=== PATIENT | female | born 1950 | race Caucasian/White ===

== ENCOUNTER 2019-10-26 07:37 | Day surgery (SDC) | payer MEDICARE, OTHER ==
[~2019-10-26] VITALS: Ht 157.5 cm; Wt 59.4 kg
[~2019-10-26 07:37] MED LIST: ADULT LOW DOSE81 MG PO; ALL DAY ALLERGY10 M3 PO; ASPIRIN EC81 MG PO; CALCIUM600 MG PO; CELEXA20 MG PO; CETIRIZINE HCL10 MG PO; DICLOFENAC SODI75 MG PO; LIPITOR40 MG PO; LOSARTAN-HCTZ1 EAC1 PO; MACULAR HEALTH1 EACH PO; MULTI VITAMIN1 EACH PO; MULTIVITAMINS1 EAC7 PO; NORCO 5-325 TA1 EACH PO; SIMVASTATIN80 MG PO; VITAMIN B COMP1 EACH PO
--- NOTE | 2019-10-26 09:15 | NUR ---
10/26/19 0915 Sheets,Erma 0909 PT ARRIVED TO PACU ON 2L VIA NC, PT WAKES EASILY TO VERBAL STIMULI AND IS ENCORAGED TO PASS GAS/AIR. PT REORIENTED TO PACU. PT RESTING ON LEFT SIDE AND DENIES DIZZINESS AND PAIN. 0914 O2 TURNED OFF.
--- NOTE | 2019-10-27 07:08 | OR ---
[facility] [address] [place], [place] [address] Signed DATE OF OPERATION: 10/26/2019 SURGEON: Nery Canales MD PREOPERATIVE DIAGNOSES: 1. Personal history of colonic polyps. 2. Sigmoid resection with side-to-end colorectal anastomosis (12 cm). 3. History of diverticular disease. 4. Internal hemorrhoids. 5. Irritable bowel syndrome with constipation and diarrhea. POSTOPERATIVE DIAGNOSES: 1. 3 mm polyps x3 at 10 cm (rectum). 2. Distal left colon diverticula x2. 3. Colorectal anastomosis at 12 cm (side-in). PROCEDURE: Colonoscopy with cold biopsy. ESTIMATED BLOOD LOSS: None. INDICATIONS: Leslie is a 69-year-old female who spoke of a negative colonoscopy clear back in 1999. In 2007, she had hyperplastic polyps in the distal sigmoid colon and the rectum. She had severe angulation at the rectosigmoid junction. The colonoscope could not be passed through this area. A barium enema had been performed. She then underwent her open sigmoid resection in December of 2010 with a Hernandez side-to-end colorectal anastomosis at 12 cm. She came back in March of 2011 for completion colonoscopy. She had a tiny hyperplastic polyp at 15 cm at that time. She also had just a little left-sided diverticulosis. She also was known to have minimal internal hemorrhoid tissue. She has had irritable bowel syndrome in the past including constipation and diarrhea. She said it was markedly improved after the surgery. She then had her gallbladder out in 2012 and she describes yellow liquidy stool, sometimes at 3 or 4 in the morning. I explained her that it was common following a cholecystectomy. She gives no family history of colon cancer or polyps. She returns now for followup colonoscopy. In the office, I gave her a pamphlet on colonoscopy. She recalls colonoscopy quite well. She understands there is risk including, but not limited to gas bloating, crampy abdominal pain, bleeding, perforation requiring surgery, and missed diagnosis. She also understands the need for IV conscious sedation. She has always done well with Versed Electronically Signed By: NERY CANALES MD 10/27/19 0708 PATIENT NAME: LESLIE TRENT OPERATIVE REPORT DATE OF : 48 REPORT #: [id number] PHYSICIAN: NERY CANALES MD PCP: ARIELLA GARCIA PA-C REPORT IS CONFIDENTIAL AND NOT TO BE RELEASED WITHOUT AUTHORIZATION [facility] [address] [place] [id number] Signed and fentanyl. She has expressed understanding and would like to proceed. PROCEDURE NOTE: Leslie was taken into our endoscopy suite and placed in the left lateral decubitus position. She was given a total of 4 mg of Versed and 100 mcg of fentanyl to cover the case. Unfortunately, her blood pressures were running low with systolic blood pressures in the 80s. She was given extra IV fluids. In addition, she did order breath several times and her oxygen saturation was running just a low as well. Nevertheless, she did tolerate the procedure well. We performed a digital rectal exam and this was unremarkable other than a small anterior midline anal skin tag. She has good sphincter tone. No masses. The adult colonoscope had been introduced and advanced all around into the cecum without difficulty. She has a fairly short colon. Her prep was good. The scope was slowly withdrawn. We could easily see the appendiceal orifice and the ileocecal valve. We took pictures throughout for photodocumentation. Back at 12 cm, we examined the blind end of the left colon. There were two diverticula there. No other diverticula noted. We could see the nita at the end of that left colon. The anastomosis remains widely patent and well healed. There is no stricture. There is no ulceration or granulation tissue. No exposed suture. The anastomosis is at 12 cm. At 10 cm high in the rectum were three tiny 3 mm hyperplastic-appearing polyps. They were easily removed with a cold biopsy forceps. Leslie was awakening at that time and we tried to retroflex the scope without success. It did bother just a bit, but after a couple of tries, we decided to go ahead and abandon retroflexion of the scope. We withdrew the scope slowly and no other pathology was noted. After this, the gas had been suctioned out and the colonoscope removed. Leslie tolerated procedure quite well. RECOMMENDATIONS: I will see Leslie back in my office in 7 to 14 days to review her results. Nery Canales MD ALB/MODL /[id number] cc: MD Ariella Hartman PA-C Electronically Signed By: NERY CANALES MD 10/27/19 0708 PATIENT NAME: LESLIE TRENT OPERATIVE REPORT DATE OF : 48 REPORT #: [id number] PHYSICIAN: NERY CANALES MD PCP: ARIELLA GARCIA PA-C REPORT IS CONFIDENTIAL AND NOT TO BE RELEASED WITHOUT AUTHORIZATION [address] [place], [place] [address] Signed Copies: NERY CANALES MD, CHLOE K PA-C ~ Electronically Signed By: NERY CANALES MD 10/27/19 0708 PATIENT NAME: LESLIE TRENT OPERATIVE REPORT DATE OF : 48 REPORT #: [id number] PHYSICIAN: NERY CANALES MD PCP: ARIELLA GARCIA PA-C REPORT IS CONFIDENTIAL AND NOT TO BE RELEASED WITHOUT AUTHORIZATION
--- NOTE | 2019-10-27 14:32 | PATH ---
[facility] [address] [place], [place] [address] Signed SPECIMEN(S): A COLON POLYP AT 10 CM SPECIMEN SOURCE: A. COLON POLYP AT 10 CM CLINICAL HISTORY: IBS, polyps, diverticulosis. MICROSCOPIC DESCRIPTION: Histologic sections of all submitted blocks are examined by light microscopy. These findings, together with the gross examination, support the pathologic diagnosis. FINAL PATHOLOGIC DIAGNOSIS: Mucosa, colon at 20 cm, biopsy: - Hyperplastic polyp. LJA:cml:C2NR GROSS DESCRIPTION: The specimen, labeled "JT, 1" and "colon polyp at 10 cm" on the requisition, is received in formalin and consists of three soft castaneda tissue fragments that vary from 0.1-0.3 cm and are submitted in toto in cassette A1. SS (under the direct supervision of a pathologist) The Gross Description was prepared using a voice recognition system. The report was reviewed for accuracy; however, sound-alike word errors, addition and/or deletions may occur. If there is any question about this report, please contact Client Services. PERFORMING LABORATORY: The technical component was performed by [facility], [address] [place] [id number] (Crm Marketing Executive: Lizet Villatoro MD; CLIA# [id number]). [facility], [address] [address] (CLIA# [id number]). Diagnostician: Johnie Diaz MD Pathologist Electronically Signed 10/27/2019 Copies: PATIENT NAME: DIVYA TRENT PATHOLOGY DATE OF : 48 REPORT #: [id number] PHYSICIAN: [facility] PCP: SÁNCHEZ GARCIA PA-C REPORT IS CONFIDENTIAL AND NOT TO BE RELEASED WITHOUT AUTHORIZATION [address] [address] Signed ~ PATIENT NAME: DIVYA TRENT PATHOLOGY DATE OF : 48 REPORT #: [id number] PHYSICIAN: [facility] PATHOLOGY PCP: SÁNCHEZ GARCIA PA-C REPORT IS CONFIDENTIAL AND NOT TO BE RELEASED WITHOUT AUTHORIZATION
== END 2019-10-26 09:47 | disposition home or self-care (01) ==
LOC: DS 07:37 → OPS 07:37 → DS 11:15
PROVIDERS: Colon & Rectal Surgery
PROC: 0DBP8ZZ Excision of Rectum, Via Natural or Artificial Opening Endoscopic (ICD-10-PCS; principal; 2019-10-26 09:00)
DX: Z12.11 Encounter for screening for malignant neoplasm of colon (principal); K62.1 Rectal polyp; K57.30 Diverticulosis of large intestine without perforation or abscess without bleeding; E78.00 Pure hypercholesterolemia, unspecified; Z86.010 Personal history of colon polyps; Z98.0 Intestinal bypass and anastomosis status; Z79.82 Long term (current) use of aspirin; Z79.899 Other long term (current) drug therapy; Z98.890 Other specified postprocedural states; Z87.891 Personal history of nicotine dependence; Z79.1 Long term (current) use of non-steroidal anti-inflammatories (NSAID)
CPT/HCPCS: 99153; G0500; J2250; J3010; J7121

== ENCOUNTER 2021-02-10 05:35 | Day surgery (SDC) | payer MEDICARE, OTHER ==
[~2021-02-10] VITALS: Ht 157.5 cm; Wt 56.4 kg
[~2021-02-10 05:35] MED LIST changes: +ASPIRIN81 MG PO; +AZO CRANBERRY1 EACH PO; +AZO URINARY TR1 EAC1 PO; +MULTI-VITAMIN1 EACH PO; +OMEPRAZOLE20 MG PO; +PROBIOTIC1 EAC1 PO; +PROBIOTIC1 EAC2 PO
--- NOTE | 2021-02-10 09:06 | NUR ---
02/10/21 0905 Erma Ames 9567 PT ARRIVED TO PACU ON 10 VIA MASK, PT REACTIVE TO TACTILE STIMULI. VSS. 0856 PT OPENS HER EYES AND O2 DECREASED TO 6L, PT DENIES PAIN AND NAUSEA. 0900 O2 REMOVED AND HOB INCREASED. PT ENCOURAGED TO COUGH AND DEEP BREATHE. VSS. RN CONTINUES TO REORIENT PT TO PACU.
--- NOTE | 2021-02-10 09:28 | NUR ---
PT IS BACK TO FROM PACU. SHE HAS WATER ON BEDSIDE. CALL LIGHT WITHIN REACH. NO C/O'S PAIN. PAINTER IS REMOVED, WITH APPROXIMATELY 75CC'S OF PALE YELLOW URINE. VAGINAL PACKING IS ALSO REMOVED. NO ADDITIONAL NEEDS AT THIS TIME.
--- NOTE | 2021-02-10 10:31 | NUR ---
LE 1020: PT REQUESTS TO GET UP OOB TO THE BATHROOM. SHE IS HELPED WITH STANDBY ASSIST. SHE IS UNABLE TO VOID AT THIS TIME, BUT REPORTS BLEEDING. SHE IS GIVEN A PERIPAD AND MESH PANTIES. SHE IS HELPED BACK TO BED. SHE IS GIVEN PUDDING AND ENCOURAGED TO DRINK WATER. CALL LIGHT WITHIN REACH. NO ADDITIONAL NEEDS.
--- NOTE | 2021-02-10 11:06 | NUR ---
PT ALERT, ORIENTED AND WAITING TO DR JAFFE BEFORE SURGERY. PT SEEMS TO BE PREPARED, ALL QUESTIONS ASKED ANSERED. WILL REGISTERED DIET TECHNICIAN FOLLOWING DC. PT REQUESTED PRAYER, WILL FOLLOW NEEDED
--- NOTE | 2021-02-10 11:23 | NUR ---
LE 1100: PT IS UP OOB TO THE BATHROOM WHERE SHE IS ABLE TO VOID 100MLS. SHE INDICATES THAT SHE WOULD LIKE TO GO HOME. SHE IS EDUCATED ON HOW TO BEST DRESS HERSELF AND TO OPEN HER CURTAIN WHEN READY. LE 1105: PT IS GIVEN VERBAL DC INSTRUCTIONS. SHE VERBALIZES UNDERSTANDING. NO QUESTIONS AT THIS TIME. PT IS TAKEN TO PERSONAL VEHICLE VIA WC, SHE IS ABLE TO TRANSFER HERSELF FROM WC TO VEHICLE.
--- NOTE | 2021-02-11 11:21 | PATH ---
[facility] [address] [place], [place] [address] Signed SPECIMEN(S): A MESH SPECIMEN SOURCE: A. MESH CLINICAL HISTORY: Recurrent UTI; bladder outlet obstruction. Cystoscopy, mid urethral sling release. For gross identification only. FINAL PATHOLOGIC DIAGNOSIS: Surgical mesh, excision: - Surgical mesh with associated chronic inflammation and foreign body-type giant cell reaction embedded with dense fibrocollagenous tissue. NAL:cml:C2NR MICROSCOPIC EXAMINATION: Histologic sections of all submitted blocks are examined by light microscopy. These findings, together with the gross examination, support the pathologic diagnosis. GROSS DESCRIPTION: The specimen, labeled "JT," and designated on the requisition "mesh, bladder outlet obstruction, recurrent UTI," is received in formalin and consists of two castaneda-pink soft tissue fragments with embedded clear plastic mesh material measuring 2.0 x 1.0 x 0.4 cm in aggregate. Revenue Accounting Manager sections are submitted in cassette (A1). AT (under the direct supervision of a pathologist) The Gross Description was prepared using a voice recognition system. The report was reviewed for accuracy; however, sound-alike word errors, addition and/or deletions may occur. If there is any question about this report, please contact Client Services. PERFORMING LABORATORY: The technical component was performed by [employer] [facility], [address] [place] [id number] (Prawn Trawler Hand: Lizet Villatoro MD; CLIA# [id number]). [facility], [address] [address] (CLIA# [id number]). Diagnostician: Tatianna Ayoub MD Pathologist PATIENT NAME: DIVYA TRENT PATHOLOGY DATE OF : 48 REPORT #: [id number] PHYSICIAN: [facility] PCP: SÁNCHEZ GARCIA PA-C REPORT IS CONFIDENTIAL AND NOT TO BE RELEASED WITHOUT AUTHORIZATION [address] [place] [address] Signed Electronically Signed 02/11/2021 Copies: ~ PATIENT NAME: DIVYA TRENT PATHOLOGY DATE OF : 48 REPORT #: [id number] PHYSICIAN: [facility] PCP: SÁNCHEZ GARCIA PA-C REPORT IS CONFIDENTIAL AND NOT TO BE RELEASED WITHOUT AUTHORIZATION
--- NOTE | 2021-02-12 08:09 | OR ---
[facility] [address] [place], [place] [address] Signed DATE OF OPERATION: 02/10/2021 SURGEON: Madonna Jaffe MD PREOPERATIVE DIAGNOSES: 1. History of stress urinary incontinence, status post TOT sling placement. 2. Incomplete bladder emptying due to bladder outlet obstruction, secondary to indwelling mid urethral sling. 3. Recurrent urinary tract infection. POSTOPERATIVE DIAGNOSES: 1. History of stress urinary incontinence, status post TOT sling placement. 2. Incomplete bladder emptying due to bladder outlet obstruction, secondary to indwelling mid urethral sling. 3. Recurrent urinary tract infection. NAMES OF PROCEDURES: 1. Diagnostic cystoscopy. 2. Excision of mid urethral sling. ANESTHESIA: General. ESTIMATED BLOOD LOSS: 10 mL. COMPLICATIONS: None. SPECIMENS: Two fragments of polypropylene mid urethral sling sent to pathology for gross evaluation. DRAINS: A 16-Algerian Ramirez catheter, connected to gravity drainage. INDICATIONS FOR PROCEDURE: Ms. Trent is a very pleasant 70-year-old female with a history of stress urinary incontinence symptoms. She underwent placement of a sling quite a few years ago, which did result in improvement of her symptoms. However, for the past couple of years, she has been experiencing recurrent urinary tract infections. She underwent diagnostic Electronically Signed By: MADONNA JFAFE MD 02/12/21 0809 PATIENT NAME: DIVYA TRENT OPERATIVE REPORT DATE OF : 48 REPORT #: [id number] PHYSICIAN: MADONNA JAFFE MD PCP: SÁNCHEZ GARCIA PA-C REPORT IS CONFIDENTIAL AND NOT TO BE RELEASED WITHOUT AUTHORIZATION [facility] [address] [place], [place] [address] Signed cystoscopy, which revealed no obvious evidence of bladder outlet obstruction. However, urodynamics was performed, which did indicate active bladder outlet obstruction with elevated bladder pressures and a weak force of stream. I therefore determined based on that study result that she is likely experiencing bladder outlet obstruction due to the presence of her mid urethral sling. After discussion of the nature of the procedure related to sling and excision, the patient has agreed to undergo excision of her mid urethral sling. She does understand that she has an approximately 30% chance of recurrence of her stress urinary incontinence symptoms. She presents today to undergo excision of her mid urethral sling. OPERATIVE FINDINGS: 1. Approximately 1 cm worth of the patient's sling was excised and removed from the area of the urethra. I would have dissected it further down to extract more sling, however, the sling appeared to be very well imbedded into the periurethral tissue, so I aborted any measures to continue to dissect the sling to the level of the bilateral pubic rami. 2. Cystoscopy was performed after excision of the sling, which revealed no evidence of any iatrogenic damage to the urethra or bladder neck. Re-evaluation of the bladder revealed no new changes since her most recent cystoscopy. DESCRIPTION OF PROCEDURE: After informed consent was obtained, the patient was taken back to the operating room. She was transferred from the [facility] to the operating room table where general anesthesia was induced. She was placed in the mid high to high dorsal lithotomy position and her genitalia were prepped and draped in the standard sterile fashion. A 16-Algerian Ramirez catheter was inserted into her bladder and her bladder was emptied completely. A Virgilio retractor was then placed over the genitalia and hooks were inserted to allow for better visualization of the anterior vaginal wall and suburethral space. Once her hooks were placed, one Allis was placed approximately 0.5 cm inferior to the urethra and the 2nd one was placed approximately 3 cm below. A 10 mL of 0.25% Marcaine without epinephrine was then injected into the periurethral space to allow for improved dissection. An approximately 2 cm vertical incision was made into the anterior vaginal wall just over where the mid urethral sling was palpable in the urethral area. Prior to placement of the incision, I had palpated the sling quite easily with the Ramirez catheter in place. Using Metzenbaum scissors, I dissected the vertical incision bilaterally toward the pubic rami. With my finger, I was able to locate the sling and dissect the periurethral tissue embedded around it. This was mostly performed using a #15 blade. I inserted the right angle under the sling once I dissected it free from the surrounding tissue. I incised the sling with a straight scissor. I took hold of each side of the sling in an attempt to dissect it down toward each respective pubic ramus as far as I could. I was able to extract a small amount of each side of the exposed sling for a total amount of approximately 1 cm of sling excised. All the while, hemostasis was achieved via FloSeal as well as judicious use of electrocautery avoiding the area of the urethra at all Electronically Signed By: MADONNA JAFFE MD 02/12/21 0809 PATIENT NAME: DIVYA TRENT OPERATIVE REPORT DATE OF : 48 REPORT #: [id number] PHYSICIAN: MADONNA JAFFE MD PCP: SÁNCHEZ GARCIA PA-C REPORT IS CONFIDENTIAL AND NOT TO BE RELEASED WITHOUT AUTHORIZATION [address] [place] [address] Signed times. Once I was satisfied that hemostasis had been achieved, the incision was closed in a continuous running fashion using 3-0 Vicryl. Diagnostic cystoscopy was then performed. Please see above findings. I then reinserted the Ramirez catheter and drained the patient's bladder yet again. Vaginal packing impregnated with Premarin cream, was then inserted into the vagina and the procedure was terminated. The patient tolerated the procedure well without any complication. She will now be transferred to the postanesthesia care unit in stable condition. DISPOSITION: I discussed the details of today's procedure with the patient and answered all of her questions. I reiterated with her today the risk of recurrence of her stress symptoms and that this occurs approximately 30% of the time. I also instructed her to avoid any heavy lifting for at least the next 2 weeks. She was given cephalexin 500 mg p.o. b.i.d. for a total of 7 days today, along with oxycodone 5 mg q.6 hours p.r.n. pain, dispense #15 as needed for pain. She will be scheduled to return to clinic in approximately 3 weeks to undergo her first postoperative evaluation. MD CHANO Covarrubias/MARY /[id number] Copies: ~ Electronically Signed By: MADONNA JAFFE MD 02/12/21 0809 PATIENT NAME: DIVYA TRENT OPERATIVE REPORT DATE OF : 48 REPORT #: [id number] PHYSICIAN: MADONNA JAFFE MD PCP: SÁNCHEZ GARCIA PA-C REPORT IS CONFIDENTIAL AND NOT TO BE RELEASED WITHOUT AUTHORIZATION
== END 2021-02-10 11:10 | disposition home or self-care (01) ==
LOC: OPS 05:35 → DS 05:35 → OPS 06:45
PROVIDERS: ATTEND Urology
PROC: 0TSC4ZZ Reposition Bladder Neck, Percutaneous Endoscopic Approach (ICD-10-PCS; principal; 2021-02-10 06:45)
DX: T83.89XA Other specified complication of genitourinary prosthetic devices, implants and grafts, initial encounter (principal); N32.0 Bladder-neck obstruction; N39.0 Urinary tract infection, site not specified; I10 Essential (primary) hypertension; E78.5 Hyperlipidemia, unspecified; Z87.891 Personal history of nicotine dependence
CPT/HCPCS: 00918; 88300; J0690; J1100; J1885; J2250; J2405; J2704; J2765; J3010; J7121

== ENCOUNTER 2024-11-14 19:13 | Inpatient (IN) | payer MEDICARE, OTHER ==
[~2024-11-14] VITALS: Ht 157.5 cm; Wt 52.9 kg
--- NOTE | 2024-11-14 01:35 | NUR ---
pt CALLING OUT FOR HELP. THIS RN WENT IN RM. pt STATED SHE HAD TO GO PEE. THIS RN TRIED TO REMIND pt THAT SHE HAS A PURE WICK IN. pt TRIED TO USE BUT WAS UNABLE TO AND KEPT SAYING SHE HAD TO PEE. THIS RN WITH THE ASSISTANCE OF LORI BASILIO HELPED THE pt TO THE BSC. pt PEED. pt BACK TO BED. BED ALARM ON. NO OTHER NEEDS AT THIS TIME. CALL LIGHT WITHIN REACH.
[~2024-11-14 19:13] MED LIST changes: -ALL DAY ALLERGY10 M3 PO; +ALL DAY ALLERGY10 MG PO
[2024-11-14] MEDS ORDERED: ondansetron HCL 4 MG/2 ML VIAL IV ONE (19:20)
[2024-11-14] MEDS ORDERED: SODIUM CHLORIDE 0.9% 1,000 ML IV PRN ×2 (19:20→20:05)
[2024-11-14] MEDS ORDERED: CEFTRIAXONE SODIUM 2 GM in SODIUM CHLORIDE 0.9% 100 ML IV ONE (19:30)
[2024-11-14 19:33] LABS: BASOPHILS 0.6 % (0-2); EOSINOPHILS 0.1 % (0-6); HEMATOCRIT 35.7 % (35.0-50.0); LYMPHOCYTES 42.7 % (24-44); MCH 34.7 (27-36); MCHC 33.6 g/dl (30-36); MCV 103.1 fl (81-99); MONOCYTES 8.9 % (0-12); NEUTROPHILS 47.7 % (39-80); PLATELET COUNT 326 K/uL (140-440); RBC 3.46 M/ul (4.3-5.7); RDW 13.6 (10.5-15.0)
[2024-11-14] MEDS ORDERED: CEFTRIAXONE SODIUM 2 GM VIAL ONE (19:39)
[2024-11-14 19:45] LABS: PARTIAL THROMBOPLASTIN TIME 21.5 Sec (22.9-41.3)
[2024-11-14 19:46] LABS: INR 1.02 (0.80-1.30); PROTIME 13.3 Sec (11.2-14.2)
[2024-11-14 19:50] LABS: ALBUMIN 3.7 g/dL (3.4-5.0); ALBUMIN/GLOBULIN RATIO 1.03 (1.1-2.4); ANION GAP 23.3 (7-21); BILIRUBIN, TOTAL 0.5 mg/dL (0.2-1.0); BUN/CREATININE RATIO 14.28 (6.0-28.6); CALCIUM 9.1 mg/dL (8.5-10.1); CREATININE, SERUM 1.12 mg/dL (0.55-1.02); POTASSIUM 3.3 mmol/L (3.5-5.1); PROTEIN, TOTAL 7.3 g/dL (6.4-8.2)
[2024-11-14 19:54] LABS: LACTIC ACID, BLOOD 7.1 mmol/L (0.4-2.0)
[2024-11-14 20:05] LABS: BILIRUBIN, URINE NEGATIVE (negative); BLOOD/HGB, URINE TRACE-L (Negative); KETONE, URINE SMALL (Negative); LEUK ESTERASE, URINE NEGATIVE (negative); NITRITE, URINE NEGATIVE (negative)
[2024-11-14 20:15] LABS: BACTERIA, URINE RARE /hpf (negative); CASTS, URINE NONE SEEN \\lpf; COLLECTION TYPE, URINE CLEAN CATCH; CRYSTALS, URINE NONE SEEN (0-1+); EPITHELIAL CELLS, URINE SQUAMOUS 1+ /lpf (0-1+)
[2024-11-14 20:16] LABS: REFLEX CULTURE, URINE Yes (No)
[2024-11-14] MEDS ORDERED: TRAMADOL HCL50 MG PO (20:17)
[2024-11-14] MEDS ORDERED: NYSTATIN-TRIAMC15 GM (20:17)
[2024-11-14 20:43] LABS: INFLUENZA B NAA NEGATIVE (NEGATIVE); RESPIRATORY SYNCYTIAL VIR NAA NEGATIVE (NEGATIVE)
[2024-11-14] MEDS ORDERED: SODIUM CHLORIDE 0.9% 1,000 ML IV SCH (20:45)
[2024-11-14] MEDS ORDERED: PROCHLORPERAZINE EDISYLATE 10 MG/2 ML VIAL IV ONE (20:45)
[2024-11-14] MEDS ORDERED: MAGNESIUM SULFATE 2 GM/50 ML BAG IV ONE (21:45)
[2024-11-14 22:10] LABS: PH, VENOUS 7.369 (7.31-7.41)
[2024-11-14] MEDS ORDERED: POTASSIUM CHLORIDE 10 MEQ TABCR PO ONE (22:45)
[2024-11-14] MEDS ORDERED: METOPROLOL TARTRATE 5 MG/5 ML VIAL IV ONE (22:45)
[2024-11-14] MEDS ORDERED: ACETAMINOPHEN 325 MG TAB PO PRN (23:15)
[2024-11-14] MEDS ORDERED: ondansetron HCL 4 MG/2 ML VIAL IV PRN (23:15)
[2024-11-14] MEDS ORDERED: DIPHENOXYLATE/ATROPINE 1 EA TAB PO PRN (23:15)
[2024-11-14] MEDS ORDERED: LACTATED RINGER'S 1,000 ML IV SCH (23:15)
--- NOTE | 2024-11-14 23:25 | NUR ---
PHONE CALL FROM , NEW ORDERS FOR MORNING LABS. REPEATED BACK TO VERIFY.
[2024-11-14 23:38] VITALS: BP 167/87
[2024-11-15] VITALS (12 sets, daily range): BP systolic 125–178; BP diastolic 47–87
--- NOTE | 2024-11-15 00:09 | NUR ---
pt ARRIVED TO THE FLOOR VIA THE STRETCHER. pt TRANSFERED TO THE BED VIA THE SLIDE SHEET. pt ATTACHED TO PURE WICK AND REMINDED THAT SHE CAN PEE INTO THE CANISTER WHEN SHE WANTS TO GO. ASSESSMENT AND VITAL SIGNS DONE. ADMISSION DONE. TELE #7 ON. CPOX ON. pt DENIES ANY OTHER NEEDS AT THIS TIME. CALL LIGHT WITHIN REACH. BED ALARM ON.
--- NOTE | 2024-11-15 03:31 | NUR ---
pt RESTING IN THE BED WITH EYES CLOSED. RR EVEN AND UNLABORED. CALL LIGHT WITHIN REACH.
--- NOTE | 2024-11-15 05:59 | NUR ---
pt RESTING IN THE BED. VITAL SIGNS DONE. pt DENIES ANY OTHER NEEDS AT THIS TIME. CALL LIGHT WITHIN REACH.
[2024-11-15 06:11] LABS: BASOPHILS 0.6 % (0-2); HEMATOCRIT 32.8 % (35.0-50.0); HEMOGLOBIN 11.3 g/dL (12.0-18.0); LYMPHOCYTES 19.2 % (24-44); MCH 34.9 (27-36); MCHC 34.5 g/dl (30-36); MCV 101.3 fl (81-99); MONOCYTES 8.2 % (0-12); PLATELET COUNT 291 K/uL (140-440); RBC 3.24 M/ul (4.3-5.7); RDW 13.5 (10.5-15.0)
[2024-11-15 06:34] LABS: ALBUMIN 3.3 g/dL (3.4-5.0); ALBUMIN/GLOBULIN RATIO 0.94 (1.1-2.4); ANION GAP 14.4 (7-21); BILIRUBIN, TOTAL 0.4 mg/dL (0.2-1.0); BUN/CREATININE RATIO 14.28 (6.0-28.6); CALCIUM 8.4 mg/dL (8.5-10.1); CREATININE, SERUM 0.7 mg/dL (0.55-1.02); POTASSIUM 3.4 mmol/L (3.5-5.1); PROTEIN, TOTAL 6.8 g/dL (6.4-8.2)
[2024-11-15] MEDS ORDERED: CITALOPRAM HBR40 MG PO (07:52)
[2024-11-15] MEDS ORDERED: LOSARTAN POTASS50 MG PO (07:53)
--- NOTE | 2024-11-15 08:30 | NUR ---
UPDATED ON CURRENT POC - ALL QUESTIONS ANSWERED. PT EXPRESSING DESIRE TO GO HOME TODAY - EDUCATION ON UTI'S AND ABX PROVIDED.
[2024-11-15] MEDS ORDERED: CEFTRIAXONE SODIUM 2 GM VIAL ONE (08:33)
[2024-11-15] MEDS ORDERED: CEFTRIAXONE SODIUM 2 GM in SODIUM CHLORIDE 0.9% 100 ML IV SCH (09:00)
--- NOTE | 2024-11-15 09:25 | NUR ---
IV ANTIBIOTICS COMPLETE. IV IN THE RIGHT FOREARM FLUSHED WITH 10 ML NORMAL SALINE AND IS SALINE LOCKED. IV DRESSING IS CLEAN, DRY, AND INTACT. PATIENT WITH VISITOR SITTING AT THE BEDSIDE. PATIENT STATED NO FURTHER NEEDS AT THIS TIME. CALL LIGHT AND PERSONAL BELONGINGS ARE WITHIN REACH.
--- NOTE | 2024-11-15 09:28 | NUR ---
ALERT IN BED, WITH KAYLYNN, SPOUSE, AT BEDSIDE. PATIENT HAS BEEN HAVING INCREASING CONFUSION, PER . PATIENT LIVES IN SINGLE STORY HOME WITH 2 STEPS TO GET INSIDE. NO ISSUES WITH THE STEPS AT BASELINE. PATIENT HAS WALKER BUT DOES NOT NEED IT AT BASELINE. KAYLYNN PROVIDES TRANSPORTATION FOR PATIENT. KAYLYNN DENIES DIFFICULTY PAYING UTILITIES OR FOR FOOD OR MEDICATIONS. HIS BIGGEST CONCERN IS PATIENT'S INCREASING FORGETFULNESS. HE ASKS ABOUT ASSISTANCE FOR CAREGIVING BECAUSE THERE ARE NO FAMILY/FRIENDS AVAILABLE TO ASSIST WITH CARING FOR PATIENT. INFORMATION FOR FAMILY RESOURCES PROVIDED. DISCUSSED ACCOUNTS COLLECTOR MEDICAID OPTION, KAYLYNN STATES THEY HAVE TOO MUCH INCOME TO QUALIFY FOR CUSTODIAL MEDICAID. DENIES OTHER NEEDS OR QUESTIONS AT THIS TIME.
--- NOTE | 2024-11-15 10:02 | NUR ---
MED REC COMPLETE
--- NOTE | 2024-11-15 10:07 | NUR ---
VISITED DURING SPIRITUAL CARE ROUNDS. PT APPEARED TO BE SLEEPING. DID NOT DISTURB. PROVIDED PRAYER.
--- NOTE | 2024-11-15 10:40 | NUR ---
RN ROUNDING ON PT - RESTING ON BED ON SIDE, DENIES NEEDS AT THIS TIME. CALL LIGHT IN REACH.
--- NOTE | 2024-11-15 12:04 | NUR ---
Patient was steady on their feet, SBA to the bathroom. Patient returned to bed once done. IV pole plugged back in. Call light and personal items within reach.
--- NOTE | 2024-11-15 12:44 | NUR ---
PT ASSISTED IN AMBULATION TO BATHROOM TO VOID - PT DENIES DYSURIA. BACK TO BED WITH CALL LIGHTIN REACH, BED ALARM ON. PT REMAINS FORGETFUL ABOUT USING CALL LIGHT AND WHY SHE IS IN THE HOSPITAL. NEEDS FREQUENT REORIENTATION. DENIES NEEDS AT THIS TIME.
--- NOTE | 2024-11-15 12:44 | EKG ---
[facility] [address] [facility] [place] [address] Signed Sinus tachycardia Left axis deviation Low voltage QRS Cannot rule out Anterior infarct (cited on or before 04-FEB-2021) Abnormal ECG When compared with ECG of 14-NOV-2024 19:15, Sinus rhythm has replaced Junctional rhythm Questionable change in initial forces of Septal leads Confirmed by Reinaldo Marinelli MD () on 11/15/2024 12:44:09 PM Electronically Signed By: REINALDO MARINELLI MD 11/15/24 1244 PATIENT NAME: DIVYA TRENT Electrocardiogram DATE OF : 48 PHYSICIAN: REINALDO MARINELLI MD REPORT #: [id number] REPORT IS CONFIDENTIAL AND NOT TO BE RELEASED WITHOUT AUTHORIZATION
--- NOTE | 2024-11-15 12:44 | EKG ---
[facility] [address] [place] [address] Signed Accelerated Junctional rhythm Left axis deviation Low voltage QRS Septal infarct (cited on or before 04-FEB-2021) Abnormal ECG When compared with ECG of 04-FEB-2021 15:25, Junctional rhythm has replaced Sinus rhythm Vent. rate has increased BY 56 BPM Incomplete right bundle branch block is no longer present Confirmed by Reinaldo Marinelli MD () on 11/15/2024 12:44:26 PM Electronically Signed By: REINALDO MARINELLI MD 11/15/24 1244 PATIENT NAME: DIVYA TRENT Electrocardiogram DATE OF : 48 PHYSICIAN: REINALDO MARINELLI MD REPORT #: [id number] REPORT IS CONFIDENTIAL AND NOT TO BE RELEASED WITHOUT AUTHORIZATION
[2024-11-15] MEDS ORDERED: ondansetron HCL 4 MG/2 ML VIAL IV PRN (12:45)
[2024-11-15] MEDS ORDERED: SODIUM CHLORIDE 0.9% 1,000 ML IV SCH (12:45)
[2024-11-15] MEDS ORDERED: ACETAMINOPHEN 325 MG TAB PO PRN (12:45)
--- NOTE | 2024-11-15 13:45 | NUR ---
PT RESTING IN BED - AT SIDE. MD AWARE IN ROOM TO DISCUSS PLAN. PT AND DENY NEEDS AT THIS TIME. VS STABLE. PT ORIENTED TO TIME AND PLACE NOW, CLEARING SOME FROM THIS AM.
--- NOTE | 2024-11-15 15:22 | NUR ---
THIS RN NOTIFIED BY HOTEL SERVICES SALES REPRESENTATIVE THAT PT WAS NOTED TO HAVE HR 149 ON COLLAR TRIMMER - NOTED TO BE FLUSH, DIAPHORETIC AND SHAKY ON BED SIDE ASSESSMENT. MD AT BEDSIDE TO ASSESS. HR ELEVATED TRANSIENTLY, REGULAR. SYMPTOMS RESOLVED WHILE AT BEDSIDE. NO ORDERS RECEIVED AT THIS TIME, MD TO REVIEW HOME MED LIST. BED ALARM ON.
[2024-11-15] MEDS ORDERED: POTASSIUM CHLORIDE 40 MEQ,LIDOCAINE HCL 1% 40 MG in DEXTROSE 5% 250 ML IV ONE (16:00)
[2024-11-15] MEDS ORDERED: ACETAMINOPHEN 325 MG TAB PO ONE (16:15)
--- NOTE | 2024-11-15 16:32 | NUR ---
PATIENT BECAME TACHY ON TELE. THEY APPEARED FLUSHED, SWEATY, AND CONFUSED. VITALS WERE TAKEN AND REPORTED TO CHARGE NURSE FRANCESCO. DOCTOR DUVALL BROUGHT IN TO CONSULT.
[2024-11-15] MEDS ORDERED: LOSARTAN POTASSIUM 50 MG TAB PO SCH (16:58)
--- NOTE | 2024-11-15 17:27 | NUR ---
PT ASSISTED BACK TO BED FROM BATHROOM BY SOUND INSTALLATION WORKER. BED ALARM ON. PT DENIES WANTING TO EAT DINNER, POOR APPETITE NOTED. IV K+ STARTED, SITE WNL.
--- NOTE | 2024-11-15 17:34 | NUR ---
PT EXITING BED WITHOUT NOTIFYING STAFF. PT HAS VISITOR IN ROOM STATING HE CAN HELP HER. PT STATES "MY WILL HELP ME, YOU GUYS CAN GO." THIS RN AND LORI BURROUGHS EXPLAIN TO PT AND PTs THAT A STAFF MEMBER NEEDS TO BE PRESENT WHEN SHE IS TRANSFERING/AMBULATING. PT VERBALIZES UNDERSTANDING. LORI BURROUGHS REMAINS WITH PT TO USE RESTROOM.
--- NOTE | 2024-11-15 18:52 | NUR ---
THIS RN RESPONDS TO PT BED ALARM. PT IS STANDING AT BEDSIDE AND REPORTS THAT SHE IS UP BECAUSE HER BED IS WET. UPON INVESTIGATION PT HAD PULLED THE IV FROM HER L AC AND IT HAS SATURATED HER LINENS. PT L AC IS REDDENED WITH A SMALL AMOUNT OF DRIED BLOOD. PT CLEANED UP WITH ALCOHOL PAD, DENIES PAIN IN AREA. SITE IS NOT WRAPPED D/T NO FURTHER BLEEDING. LORI GOODWIN AND GIOVANI SHERIDAN ARRIVE. LINENS CHANGED ON THE BED. IV TO PTs R AC PATENT - IVF RESTARTED IN PTs R AC. PT BAD TO BED, WARM BLANKETS PROVIDED, PT HAS NO REQUESTS. BED ALARM ON, BED IN LOWEST POSITION, CALL LIGHT IN REACH.
--- NOTE | 2024-11-15 19:10 | NUR ---
REPORT RECEIVED FROM FATIMAH MATUTE. pt RESTING IN THE BED. pt UP TO THE BR. SBA. pt BACK TO BED. BED ALARM ON. pt DENIES ANY OTHER NEEDS AT THIS TIME. CALL LIGHT WITHIN REACH.
--- NOTE | 2024-11-15 20:35 | NUR ---
CENTRAL SERVICE TECH OBTAINED VITALS AND I&O. PT STATES NO NEEDS AT THIS TIME. CALL LIGHT WITHIN REACH AND BED ALARM ON.
[2024-11-15] MEDS ORDERED: ATORVASTATIN 40 MG TAB PO SCH (21:00)
--- NOTE | 2024-11-15 21:40 | NUR ---
ASSESSMENT AND VITAL SIGNS DONE. pt RESTING IN THE BED. IV ASSESSED, WNL. BED ALARM ON. pt DENIES ANY NEEDS AT THIS TIME. CALL LIGHT WITHIN REACH.
--- NOTE | 2024-11-15 23:50 | NUR ---
BED ALARM ALARMING. pt TRYING TO GET TO GO TO THE BR. pt ASSISSTED TO THE BR, SBA. pt BACK TO BED. BED ALARM ON. pt DENIES ANY OTHER NEEDS AT THIS TIME. CALL LIGHT WITHIN REACH.
[2024-11-16] VITALS (11 sets, daily range): BP systolic 117–166; BP diastolic 63–83
--- NOTE | 2024-11-16 01:21 | NUR ---
CALL LIGHT ANSWERED. PATIENT UP TO BATHROOM USING 1P SBA AND FWW TO VOID. PATIENT BACK TO BED. BED ALARM ON. NO FURTHER NEEDS. CALL LIGHT IN REACH.
--- NOTE | 2024-11-16 01:46 | NUR ---
IN RM TO DO pt VITAL SIGNS. ASSESSMENT DONE. pt DENIES ANY OTHER NEEDS AT THIS TIME. CALL LIGHT WITHIN REACH.
--- NOTE | 2024-11-16 03:03 | NUR ---
SUPERINTENDENT HOUSE SBA TO BATHROOM. PT VOIDED AND ASSISTED BACK TO BED. PT STATES NO FURTHER NEEDS AT THIS TIME. CALL LIGHT WTIHIN REACH AND BED ALARM ON.
--- NOTE | 2024-11-16 05:00 | NUR ---
IN TO CHECK ON pt. pt HR UP TO THE 130'S. pt SITTING UP IN THE BED. pt ASKED TO GO TO THE BR. SBA. VITAL SIGNS DONE. pt BACK TO BED. pt DENIES ANY OTHER NEEDS AT THIS TIME. CALL LIGHT WITHIN REACH. WHEN LAYING BACK IN THE BED. pt HR WENT BACK DOWN TO 88.
--- NOTE | 2024-11-16 06:01 | NUR ---
CALL LIGHT ANSWERED. PT NEEDED TO USE BATHROOM. MEDICAL PSYCHOTHERAPIST SBA TO BATHROOM. PT VOIDED AND HAD BM. PT ASSISTED BACK TO BED. PT STATES NO FURTHER NEEDS AT THIS TIME. CALL LIGHT WITHIN REACH AND BED ALARM ON.
[2024-11-16 06:26] LABS: BASOPHILS 0.3 % (0-2); EOSINOPHILS 0.1 % (0-6); HEMATOCRIT 34.4 % (35.0-50.0); HEMOGLOBIN 11.8 g/dL (12.0-18.0); LYMPHOCYTES 18.5 % (24-44); MCH 34.7 (27-36); MCHC 34.1 g/dl (30-36); MCV 101.6 fl (81-99); MONOCYTES 11.5 % (0-12); NEUTROPHILS 69.6 % (39-80); PLATELET COUNT 313 K/uL (140-440); RBC 3.39 M/ul (4.3-5.7); RDW 13.6 (10.5-15.0)
[2024-11-16 06:50] LABS: ALBUMIN 3.2 g/dL (3.4-5.0); ALBUMIN/GLOBULIN RATIO 0.97 (1.1-2.4); ANION GAP 14.4 (7-21); BILIRUBIN, TOTAL 0.5 mg/dL (0.2-1.0); BUN/CREATININE RATIO 11.76 (6.0-28.6); CALCIUM 8.2 mg/dL (8.5-10.1); CREATININE, SERUM 0.68 mg/dL (0.55-1.02); MAGNESIUM 1.5 mg/dL (1.8-2.4); PHOSPHORUS, INORGANIC 1.4 mg/dL (2.5-4.9); POTASSIUM 3.4 mmol/L (3.5-5.1); PROTEIN, TOTAL 6.5 g/dL (6.4-8.2)
--- NOTE | 2024-11-16 07:28 | NUR ---
RECIEVED SHIFT REPORT FROM GIOVANI OVERTON. PT GETTING OUT BED, WITHOUT USE OF CALL LIGHT. BED ALARM GOING OFF. THIS RN AND BROOKLYNN MATUTE IN ROOM ASSISTING PT TO BATHROOM. TECHNICAL SUPPORT SPECIALIST IN ROOM STAND WITH PT.
--- NOTE | 2024-11-16 07:37 | NUR ---
PATIENT IN BED AT THIS TIME. PHOSPHATIC FERTILIZER SUPERVISOR ASSISTED PATIENT TO BATHRROM AND THEN BACK TO BED. BED ALARM IS SET, CALL LIGHT WITHIN REACH, NO FURTHER NEEDS AT THIS TIME.
--- NOTE | 2024-11-16 07:58 | NUR ---
UR CLINICAL REVIEW: 2 MN FOR VERSALUS-PER STAMPING BENCH DIE MAKER MEETS OBS CRITERIA FOR UTI MEDICARE OBS 11/15/24 @ 1238 ORDER MATCHES REG NO AUTH REQUIRED PER MEDICARE GUIDELINES DISCHARGE TO HOME 11/16/24
--- NOTE | 2024-11-16 07:58 | NUR ---
PATIENT IN BED AT THIS TIME. BONDING MOLDER ASSISTED PATIENT TO BATHROOM AND THEN BACK TO BED. CALL LIGHT WITHIN REACH, BED ALARMS ON, NO FURTHER NEEDS.
--- NOTE | 2024-11-16 08:10 | NUR ---
MORNING ASSESSMENT COMPLETE. PT CONTIUNOUSLY GETTING UP TO USE RESTROOM, IMPULSIVE. DENIES NEEDS. CALL LIGHT IN REACH. CONTINUED TO ORIENT PT TO THE CALL LIGHT. AT BEDSIDE.
[2024-11-16] MEDS ORDERED: CEFTRIAXONE SODIUM 2 GM VIAL ONE (08:21)
--- NOTE | 2024-11-16 08:56 | NUR ---
PATIENT WAS IN BED AT THIS TIME, EKG MONITOR TECH GOT FRESH WATER AND OFFERED A WASH CLOTH. CALL LIGHT WITH IN REACH NOTHING ELSE NEEDED AT THIS TIME.
[2024-11-16] MEDS ORDERED: ENOXAPARIN SODIUM 40 MG/0.4 ML SYR SUB-Q SCH (09:00)
[2024-11-16] MEDS ORDERED: POTASSIUM PHOSPHATE 30 MMOL in DEXTROSE 5% 500 ML IV ONE (09:00)
[2024-11-16] MEDS ORDERED: MAGNESIUM SULFATE 2 GM/50 ML BAG IV SCH (09:00)
--- NOTE | 2024-11-16 10:01 | NUR ---
RESTING IN BED WITH EYES CLOSED. NO KNOWN CM NEEDS WHEN SPOKE WITH SPOUSE, KAYLYNN. PLAN TO DC TO HOME WHEN MEDICALLY STABLE.
--- NOTE | 2024-11-16 10:10 | NUR ---
PT NOT AVAILABLE FOR VISIT. PROVIDED PRAYER.
--- NOTE | 2024-11-16 10:51 | NUR ---
PATIENT IS IN BED AT THIS TIME, PEDAL ASSEMBLER CHARTED VITALS AND I&O'S. GOT FRESH ICE WATER FOR PATIENT, CALL LIGHT WITH IN REACH AND NOTHING ELSE NEEDED AT THIS TIME.
[2024-11-16] MEDS ORDERED: PHARMACY RENAL DOSE ADJUSTMENT 1 DOSE MISC PO SCH (12:00)
--- NOTE | 2024-11-16 12:14 | NUR ---
pt resting in bed, comfortably. call light in reach. denies needs.
--- NOTE | 2024-11-16 12:39 | NUR ---
PATIENT IN BED AT THIS TIME. THIS ORGANIC LAB WORKER ASSISTED PATIENT TO BATHROOM AND THEN BACK TO BED. CALL LIGHT WITHIN REACH, ALARMS ON, NO FURTHER NEEDS.
--- NOTE | 2024-11-16 13:33 | NUR ---
PATIENT ASSISTED TO THE BATHROOM WITH SBA AND LINE AND TUBE MANAGEMENT. PATIENT WITH LIGHT YELLOW URINE VOID AND LOOSE STOOL. PATIENT ASSISTED BACK TO BED. LUNCH TRAY REMOVED AT THIS TIME. PATIENT PROVIDED NEW BOX OF [employer]. PATIENT STATED NO FURTHER NEEDS AT THIS TIME. CALL LIGHT AND PERSONAL BELONGINGS ARE WITHIN REACH.
--- NOTE | 2024-11-16 14:25 | NUR ---
PATIENT IS IN BED AT THIS TIME, REFUSED MOVING TO HER CHAIR. ORNAMENTAL RAIL INSTALLER CHARTED VITALS AND I&O'S, CALL LIGHT WITH IN REACH, NOTHING ELSE NEEDED AT THIS TIME.
--- NOTE | 2024-11-16 15:00 | NUR ---
Upon entering room I find Leslie with her eyes closed, respirations even and unlabored. Leslie awakens easily to verbal stimuli, she is oriented to person, place and time, and answers questions appropriately. 1st [facility] letter is explained, questions answered, and letter is signed. A signed copy of the letter is provided to the patient. Patient expresses no further concerns or questions at this time.
--- NOTE | 2024-11-16 15:12 | NUR ---
PATIENT IN BED AT THIS TIME. THIS SPECIAL DISTRIBUTION CLERK ASSISTED PATIENT TO BATHROOM AND THEN BACK TO BED. CALL LIGHT WITHIN REACH, ALARMS ON, NO FURTHER NEEDS.
--- NOTE | 2024-11-16 17:26 | NUR ---
PATIENT IN BED AT THIS TIME. ELECTRONEURODIAGNOSTIC TECHNOLOGIST ASSISTED PATIENT IN TO BATHROOM AND THEN BACK TO BED. CALL LIGHT WITHIN REACH, IN ROOM, NO FURTHER NEEDS.
--- NOTE | 2024-11-16 17:57 | NUR ---
PATIENT IS IN BED AT THIS TIME, COMMUNICATION STUDIES PROFESSOR CHARTED VITALS AND I&O'S. CALL LIGHT WITH IN REACH AND NOTHING ELSE NEEDED AT THIS TIME.
--- NOTE | 2024-11-16 19:24 | NUR ---
RECEIVED REPORT FROM GIOVANI DICKEY. PT RESTING IN BED. DENIES NEEDS.
--- NOTE | 2024-11-16 20:00 | NUR ---
PT ORIENTED X 3-NOT EXACT DATE. ATTEMPTING TO GET OOB UNASSISTED, BED ALARM SOUNDING. ASSISTED TO BR W/ SBA, PT STEADY ON FEET. DENIED PAIN, THEN REPORTED BACK PAIN, THEN DENIED PAIN AGAIN WHEN TYLENOL GIVEN. LSC. HRR BUT TACHY. TELEMETRY IN PLACE. BTA. URINARY URGENCY NOTED, DISPOSIBLE BRIEF IN PLACE. RAC IV W/ NS INFUSING AT 125MLS/HR. SCATTERED BRUISING TO BUE. SMALL ABRASION TO LEFT FOREHEAD. BED ALARM IN PLACE FOR SAFETY. CALL LIGHT WITHIN REACH.
--- NOTE | 2024-11-16 20:32 | NUR ---
BELLOWS TESTER OBTAINED VITALS. NO NEW I&O AT THIS TIME. PT STATES NO NEEDS AT THIS TIME. CALL LIGHT WITHIN REACH AND BED ALARM ON.
--- NOTE | 2024-11-16 22:50 | NUR ---
CALL LIGHT ANSWERED. PT NEEDED TO USE BATHROOM. MANAGER EQUITY SBA TO BATHROOM. PT VOIDED AND HAD BM. MANAGER EQUITY ASSISTED PT BACK TO BED. PT STATES NO FURTHER NEEDS AT THIS TIME. CALL LIGHT WITHIN REACH AND BED ALARM ON.
--- NOTE | 2024-11-16 22:52 | NUR ---
PT SLEEPING SOUNDLY, APPEARS COMFORTABLE.
--- NOTE | 2024-11-16 23:57 | NUR ---
CALL LIGHT ANSWERED. PT NEEDED TO USE BATHROOM. HOME CARE PHYSICAL THERAPIST SBA TO BATHROOM. PT VOIDED AND ASSISTED BACK TO BED. PT STATES NO FURTHER NEEDS AT THIS TIME. CALL LIGHT WITHIN REACH AND BED ALARM ON.
[2024-11-17] VITALS (12 sets, daily range): BP systolic 106–179; BP diastolic 54–87
--- NOTE | 2024-11-17 01:28 | NUR ---
CDL TRUCK DRIVER OBTAINEED VITALS AND I&O. PT STATES NO NEEDS AT THIS TIME. CALL LIGHT WITHIN REACH AND BED ALARM ON.
--- NOTE | 2024-11-17 01:37 | NUR ---
PT AWAKE FOR VS. DENIES NEEDS OR CONCERNS AT THIS TIME.
--- NOTE | 2024-11-17 03:41 | NUR ---
PT SLEEPING SOUNDLY. APPEARS COMFORTABLE.
--- NOTE | 2024-11-17 04:10 | NUR ---
CALL LIGHT ANSWERED. PT NEEDED TO USE BATHROOM. STRAW HAT BRUSHER SBA TO BATHROOM. PT VOIDED AND ASSISTED BACK TO BED. NO FURTHER NEEDS STATED AT THIS TIME. CALL LIGHT WITHIN REACH AND BED ALARM ON.
--- NOTE | 2024-11-17 05:31 | NUR ---
PT AWAKE, GETTING OOB UNASSISTED. BED ALARM SOUNDING. ASSISTED TO BR W/ SBA-GAIT STEADY. VOIDS WNL, UO CLEAR AND YELLOW. CONTACT PRECAUTIONS CONTINUE.
--- NOTE | 2024-11-17 05:32 | NUR ---
PRIMARY HEALTH CARE NURSE OBTAINED VITALS AND I&O. PT STATES NO NEEDS AT THIS TIME. CALL LIGHT WITHIN REACH AND BED ALARM ON.
--- NOTE | 2024-11-17 07:05 | NUR ---
RECIEVED SHIFT REPORT FROM GIOVANI LIU. PT IS RESTING IN BED, EYES CLOSED, BREATHING EVEN AND UNLABORED. BED ALARM ON FOR PT SAFETY, CALL LIGHT IN REACH.
--- NOTE | 2024-11-17 07:17 | NUR ---
PT CALLED FOR ASSIST TO BR. SBA TO BR, VOIDS WNL. BED ALARM IN PLACE FOR SAFETY.
--- NOTE | 2024-11-17 07:25 | NUR ---
PT RIBBON CUTTER LIGHT TO USE RESTROOM. GIOVANI LIU IN ROOM TO ASSIST.
--- NOTE | 2024-11-17 07:51 | NUR ---
PT IN BATHROOM AT THIS TIME. REFUSING TO GET IN RECLINER, "MAYBE LATER". BACK IN BED, BED ALARM ON, CALL LIGHT IN REACH.
[2024-11-17] MEDS ORDERED: CEFTRIAXONE SODIUM 2 GM VIAL ONE (07:57)
[2024-11-17] MEDS ORDERED: POTASSIUM CHLORIDE 40 MEQ,LIDOCAINE HCL 1% 40 MG in DEXTROSE 5% 250 ML IV ONE (08:15)
[2024-11-17] MEDS ORDERED: LABETALOL HCL 20 MG/4 ML VIAL IV PRN (08:15)
--- NOTE | 2024-11-17 08:32 | NUR ---
PT IN ROOM, PT IS TEARFUL WANTING TO GO HOME. RN ASKED IF PT TOOK ANYTHING AT HOME FOR DEPRESSION AND STATED THERE WAS A MEDICATION SHE TAKES BUT COULDNT REMEMBER THE NAME. CHECKED HOME MEDICATIONS, AND PT AGREED WITH THIS RN TO TALK TO MD TO START THE MEDICATION HERE. KEVON VERBALIZED TO ORDER MED.
[2024-11-17 08:54] LABS: BASOPHILS 0.3 % (0-2); EOSINOPHILS 0.3 % (0-6); HEMATOCRIT 36.1 % (35.0-50.0); HEMOGLOBIN 12.3 g/dL (12.0-18.0); LYMPHOCYTES 12.2 % (24-44); MCH 34.5 (27-36); MCHC 34.2 g/dl (30-36); MCV 101.1 fl (81-99); MONOCYTES 9.6 % (0-12); NEUTROPHILS 77.6 % (39-80); PLATELET COUNT 315 K/uL (140-440); RBC 3.57 M/ul (4.3-5.7); RDW 13.5 (10.5-15.0)
[2024-11-17] MEDS ORDERED: MAGNESIUM SULFATE 2 GM/50 ML BAG IV ONE (09:00)
[2024-11-17] MEDS ORDERED: LOSARTAN POTASSIUM 100 MG TAB PO SCH (09:00)
[2024-11-17] MEDS ORDERED: SODIUM PHOSPHATE 30 MMOL in DEXTROSE 5% 250 ML IV ONE (09:00)
[2024-11-17] MEDS ORDERED: CITALOPRAM HYDROBROMIDE 20 MG TAB PO SCH (09:00)
[2024-11-17 09:09] LABS: ALBUMIN 3.5 g/dL (3.4-5.0); ALBUMIN/GLOBULIN RATIO 0.95 (1.1-2.4); BILIRUBIN, TOTAL 0.5 mg/dL (0.2-1.0); BUN/CREATININE RATIO 4.76 (6.0-28.6); CALCIUM 8.2 mg/dL (8.5-10.1); CREATININE, SERUM 0.63 mg/dL (0.55-1.02); MAGNESIUM 1.7 mg/dL (1.8-2.4); PHOSPHORUS, INORGANIC 2.1 mg/dL (2.5-4.9); PROTEIN, TOTAL 7.2 g/dL (6.4-8.2)
--- NOTE | 2024-11-17 09:26 | NUR ---
PATIENT IS IN HER BED AT THIS TIME, MIDDLE CARD TENDER CHARTED VITALS AND I&O'S, PATIENT NEEDED ASSISTANCE TO THE RESTROOM. MIDDLE CARD TENDER GOT A WASH CLOTH FOR HER TO WASH HER FACE, ASSISTED BACK TO BED, IN ROOM. CALL LIGHT WITH IN REACH AND NOTHING ELSE NEEDED AT THIS TIME.
--- NOTE | 2024-11-17 09:30 | NUR ---
AT BEDSIDE. PAITENT SITTING UP IN BED. PATIENT FEELS BETTER STATES HER IS A WONDERFUL CAREGIVER. THEY ARE HAVING A FAMILY MEMBER COME STAY WITH THEM AT TIME OF DISCHARGE FOR MORE SUPPORT. NO OTHER CM NEEDS AT THIS TIME.
[2024-11-17] MEDS ORDERED: POTASSIUM CHLORIDE 10 MEQ TABCR PO ONE (10:00)
--- NOTE | 2024-11-17 10:20 | NUR ---
DUE TO IV MEDICATIONS, THIS RN DISCUSSED WITH PT STARTING ANOTHER IV. PT COMPLIANT.
--- NOTE | 2024-11-17 12:50 | NUR ---
PATIENT IS IN HER CHAIR AT THIS TIME, ROAD TEST EXAMINER CHARTED VITALS AND I&O'S, CALL LIGHT WITH IN REACH AND NOTHING ELSE NEEDED AT THIS TIME.
--- NOTE | 2024-11-17 15:00 | NUR ---
PT CALL LIGHT ON, REQUESTING TO USE BATHROOM. SBA FOR LINES TO BATHROOM, VOIDING CLEAR YELLOW URINE. IV FLUIDS COMPLETE, NEW BAG HUNG AT THIS TIME. ALL PT CARE NEEDS MET, PT BACK IN BED, CALL LIGHT WITHIN REACH.
--- NOTE | 2024-11-17 17:07 | NUR ---
PT UP TO BATHROOM, TELE SHOWED HR 158. THIS RN IN ROOM TO ASSESS. PT IS GETTING BACK INTO BED, PT APPEARS TO SHAKEY. ASKED PT IF SHE FEELS SOB, PT STATED ALITTLE. CHECKED VITAL SIGNS. ONCE IN BED HR DECREASED TO 103. CALLED.
[2024-11-17] MEDS ORDERED: AMOXICILLIN/CLAVULANATE K 875 MG TAB PO SCH (17:15)
--- NOTE | 2024-11-17 17:37 | NUR ---
PATIENT IS IN BED AT THIS TIME, NEEDED SOME ASSISTANCE TO THE RESTROOM. STOCKROOM COORDINATOR CHARTED VITALS AND I&O'S, BROTHER IS IN ROOM VISITING. CALL LIGHT WITH IN REACH AND NOTHING ELSE NEEDED AT THIS TIME.
--- NOTE | 2024-11-17 17:55 | NUR ---
PER MD, INFORMED OF ELEVATED BP/HR IN THE 160'S, WHEN RESTING CURRENTLY IN THE 110'S. DISCUSSED CASE WITH CCU CHARGE. PER MD DISCUSSION, ORDERS INPUT FOR LACTIC, CXR, AND DC IV FLUIDS. ORDERS INPUT, PRIMARY RN NOTIFIED.
--- NOTE | 2024-11-17 18:02 | NUR ---
PT SALINE LOCKED AT THIS TIME. PT C/O BODY HURTING ALL OVER, VS STABLE, AFEBRILE. ASSISTED UP TO CHAIR PATIENT STATES IT MAY BE FROM JUST ALYING HERE. WHEN GETTING OUT OF BED AND AMBULATING SHE WAS HOLDING HER RIGHT SIDE/FLANK, PATIENT HAS BEEN VOIDING WITHOUT ISSUES, CLEAR YELLOW URINE. UP OT CHAIR AT THIS TIME. CALL LIGHT WITHIN REACH. DENIES NEEDS AT THIS TIME.
--- NOTE | 2024-11-17 18:09 | NUR ---
PATIENT IN BED AT THIS TIME. IRONWORKER ASSISTED PATIENT TO BATHROOM AND THEN BACK TO BED. CALL LIGHT WITHIN REACH, NO FURTHER NEEDS AT THIS TIME.
--- NOTE | 2024-11-17 18:42 | NUR ---
PT VERY ANXIOUS AND WORKED UP AT THIS TIME. PT INFORMED BY BROTHER THAT CURRENTLY BEING EVALUATED IN THE ER. PT IS UNSURE WHAT FOR, HER HR REFLECTING HER ANXIOUS/WORRY BEHAVIOR, DISCUSSED WITH HER STAYIG RELAXED, TAKING DEEP BREATHS AND UNDERSTANDING HER IS IN THE BEST PLACE RIGHT NOW, BEING EVALUATED, HR LOWERED IN THE 80-90'S AT THIS TIME. PT INFORMED WE CAN TRY TO PROVIDE HER AN UPDATE LATER ON. PT VERBALIZED UNDERSTANDING, TO FOCUS ON HER CARE AND GETTING BETTER AT THIS TIME.
--- NOTE | 2024-11-17 18:50 | NUR ---
PT COMPLAINING OF BACK PAIN, PRN MEDICATION ADMINSITERED (PER EMAR). HEAT PACK APPLIED.
--- NOTE | 2024-11-17 19:35 | NUR ---
RECEIVED REPORT FROM GIOVANI DICKEY. PT RESTING IN BED, REQUESTING ROOM TEMP DECREASE. TEMP DECREASED AND BLANKETS LIGHTENED. BED ALARM IN PLACE FOR SAFETY.
--- NOTE | 2024-11-17 19:53 | NUR ---
BED ALARM ANSWERED. PT NEEDED TO HAVE BM. COMMUNICATION INSTRUCTOR PLACED CLEAN HAT IN TOILET. PT ASSISTED TO BATHROOM. PT HAD BM AND ASSISTED BACK TO BED. STOOL SAMPLE COLLECTED AND SENT TO LAB. PT STATES NO FURTHER NEEDS AT THIS TIME. CALL LIGHT WITHIN REACH AND BED ALARM ON.
--- NOTE | 2024-11-17 20:00 | NUR ---
PT SITTING EOB. REPORTS ANXIETY ABOUT UNCERTAINTY IF SPOUSE IS IN ER. ASSISTED PT TO MAKE PHONE CALL TO HOME-NO ANSWER. WILL UPDATE PT INFORMATION BECOMES AVAILABLE. PT ORIENTED X 3, NOT DATE. IS FORGETFUL & IMPULSIVE. BED ALARM IN PLACE FOR SAFETY. REPORTS RIGHT HIP PAIN, PT JUST RECEIVED PRN TYLENOL BEFORE SHIFT CHANGE. HEAT PACK IN PLACE TO RIGHT HIP. LSC. HRR, TELEMETRY IN PLACE. BT HYPO. LBM TODAY, STOOL SAMPLE SENT TO LAB. SL TO LW AND RAC WNL. PT HAS SCATTERED ABRASIONS AND BRUSING TO BUE AND HEAD. CALL LIGHT AND HOSPITAL PHONE WITHIN REACH.
--- NOTE | 2024-11-17 22:30 | NUR ---
PT CALLED APPROPRIATELY FOR ASSIST TO BR. WILDLIFE PHOTOGRAPHER ASSISTED.
--- NOTE | 2024-11-17 22:53 | NUR ---
CALL LIGHT ANSWERED. PT NEEDED TO USE BATHROOM. HEMP FIBER TAKER OFF SBA TO BATHROOM. PT VOIDED AND ASSISTED BACK TO BED. PT STATES NO FURTHER NEEDS AT THIS TIME. CALL LIGHT WITHIN REACH AND BED ALARM ON.
--- NOTE | 2024-11-17 22:54 | NUR ---
walking in room, watching tv, no c/o pain, independent in room, tele#[address] SR
--- NOTE | 2024-11-17 23:52 | NUR ---
PT CALLED APPROPRIATELY FOR ASSIST TO BR. AMBULATES SBA. VOIDS WNL. XS LOOSE BM. PT REQUESTED NEW DISPOSIBLE BRIED AND CHANGED IT OUT IND. BED ALARM IN PLACE.
[2024-11-18] VITALS (14 sets, daily range): BP systolic 137–160; BP diastolic 43–74
--- NOTE | 2024-11-18 00:19 | NUR ---
PT CALLED FOR HELP UP TO BATHROOM. AGREED TO USE BSC WITH SBA SINCE HR HAS BEEN REACHING THE 150'S WHEN UP. SHE GOT ONTO COMMODE, HR UP TO 120 THIS TIME, BACK TO BED. SHE DOES REPORT THAT SHE HAS DIARRHEA, HAD 100 MLS STOOL/URINE MIX. ASSISTED BACK TO BED WITH BED ALARM ON AND CALL LIGHT IN REACH.
--- NOTE | 2024-11-18 00:25 | NUR ---
CALL LIGHT ANSWERED. PT NEEDED TO USE BATHROOM. TRACTOR TRAILER MECHANIC SBA TO BATHROOM. PT VOIDED AND ASSISTED BACK TO BED. PT STATES NO FURTHER NEEDS AT THIS TIME. CALL LIGHT WITHIN REACH AND BED ALARM ON.
--- NOTE | 2024-11-18 01:12 | NUR ---
PT ASSISTED TO BR, SBA. VOID AND XS LOOSE BM. PT USED BR AGAIN BEFORE RETURNING TO BED, NO OUTPUT. REPORTS BACKACHE, PRN TYLENOL ADMINISTERED.
--- NOTE | 2024-11-18 01:32 | NUR ---
REFERRAL CLERK OBTAINED VITALS AND I&O. PT STATES NO NEEDS AT THIS TIME. CALL LIGHT WITHIN REACH AND BED ALARM ON.
--- NOTE | 2024-11-18 03:14 | NUR ---
PT SLEEPING SOUNDLY ON RIGHT SIDE. APPEARS COMFORTABLE. BED ALARM IN PLACE.
--- NOTE | 2024-11-18 05:26 | NUR ---
FLYER REPAIRER OBTAINED VITALS. NO NEW I&O AT THIS TIME. PT STATES NO NEEDS AND CALL LIGHT WITHIN REACH. BED ALARM ON.
--- NOTE | 2024-11-18 05:40 | NUR ---
PT CALLED FOR ASSIST TO TO BR. VOIDS WNL. UO CLEAR YELLOW. DENIES DYSURIA. SMALL LOOSE BM. ASSISTED BACK TO BED, GAIT STEADY. BED ALARM IN PLACE FOR SAFETY.
[2024-11-18 05:53] LABS: BASOPHILS 0.5 % (0-2); EOSINOPHILS 0.2 % (0-6); HEMATOCRIT 34.5 % (35.0-50.0); HEMOGLOBIN 11.9 g/dL (12.0-18.0); LYMPHOCYTES 19.2 % (24-44); MCH 34.7 (27-36); MCHC 34.4 g/dl (30-36); MCV 100.8 fl (81-99); MONOCYTES 11.6 % (0-12); NEUTROPHILS 68.5 % (39-80); PLATELET COUNT 289 K/uL (140-440); RBC 3.43 M/ul (4.3-5.7); RDW 13.5 (10.5-15.0)
[2024-11-18 06:07] LABS: ANION GAP 18.8 (7-21); BUN/CREATININE RATIO 7.69 (6.0-28.6); CALCIUM 8.7 mg/dL (8.5-10.1); CREATININE, SERUM 0.65 mg/dL (0.55-1.02); PHOSPHORUS, INORGANIC 3.4 mg/dL (2.5-4.9); POTASSIUM 3.8 mmol/L (3.5-5.1)
--- NOTE | 2024-11-18 07:27 | NUR ---
RECIEVED SHIFT REPORT. PT IS RESTING IN BED, AWAKE. AT BEDSIDE. CALL LIGHT IN REACH. BED ALARM ON FOR PT SAFETY.
--- NOTE | 2024-11-18 08:33 | NUR ---
PT AWAKE IN BED, TEARFUL. ENCOURAGED PT TO EAT, STATES SHE IS NOT HUNGRY. MEDICATIONS ADMINISTERED. DENIES NEEDS AT THIS TIME. WAS IN THIS AM, BUT WENT HOME. BED ALARM ON FOR SAFETY. CALL LIGHT PLACED IN REACH.
--- NOTE | 2024-11-18 09:18 | NUR ---
PATIENT WAS IN BED AT THIS TIME, ONLY ATE A LITTLE BIT, WELDING EQUIPMENT REPAIRER ASSISTED TO THE RESTROOM AND BACK TO BED. WELDING EQUIPMENT REPAIRER OFFERED TO TURN MUSIC ON AND A WARM BLANKET BUT PATIENT REFUSED. WELDING EQUIPMENT REPAIRER CHARTED VITALS AND I&O'S AND GOT THINGS READY FOR A SHOWER LATER TODAY. HER AND BROTHER ARE BOTH IN THE ROOM AND SHE IS HAPPY. CALL LIGHT WITH IN REACH AND NOTHING ELSE NEEDED AT THIS TIME.
--- NOTE | 2024-11-18 09:27 | NUR ---
PATIENT IN CHAIR AT THIS TIME. COMMERCIAL CARPENTER ASSISTED PATIENT INTO BATHROOM AND THEN BACK TO HER CHAIR. CALL LIGHT WITHIN REACH, NO FURTHER NEEDS AT THIS TIME.
--- NOTE | 2024-11-18 11:47 | NUR ---
DELIEVERED LUNCH TRAY, PT RESTING IN BED, EYES CLOSED. BREATHING EVEN AND UNLABORED. CALL LIGHT IN REACH. BED ALARM ON FOR SAFETY
--- NOTE | 2024-11-18 12:49 | NUR ---
PT UP TO BATHROOM X2 IN THE LAST 30 MINUTES, SMALL AMOUNT OF STOOL. TOILET PAPER HAS SMEAR OF RED BLOOD, INFORMED. NO NEW ORDERS. PRIMARY RN NOTIFIED.
--- NOTE | 2024-11-18 13:14 | NUR ---
PATIENT WAS IN THE RESTROOM AT THIS TIME, FIELD SERVICER ASSISTED BACK TO BED. FIELD SERVICER ASKED IF PATIENT WANTED TO SHOWER AGAIN, SHE REFUSED. SHE REFUSED LUNCH AND SEEMS VERY CONFUSED TODAY. FIELD SERVICER CHARTED VITALS AND I&O'S, CALL LIGHT WITH IN REACH AND NOTHING ELSE NEEDED AT THIS TIME.
--- NOTE | 2024-11-18 15:40 | NUR ---
PT IN RESTROOM, CLEAN BRIEF APPLIED. BACK IN BED, DENIES NEEDS. CALL LIGHT IN REACH.
--- NOTE | 2024-11-18 17:21 | NUR ---
PATIENT IN BED AT THIS TIME. LABORATORY DIRECTOR ASSISTED PATIENT TO BATHROOM AND THEN BACK TO BED. CALL LIGHT WITHIN REACH, NO FUERTHER NEEDS.
--- NOTE | 2024-11-18 17:37 | NUR ---
PT SITTING ON THE SIDE OF THE BED EATING DINNER, STATES SHE IS NOT HUNGRY, BUT IS ATTEMPTING TO EAT. DENIES NEEDSA THIS TIME. CALL LIGHT IN REACH
--- NOTE | 2024-11-18 17:49 | NUR ---
PATIENT IS IN BED AT THIS TIME, SHE ATE ONLY A FEW BITES OF HER DINNER. HASNT DRANK MUCH WATER AND REFUSED TO GET IN HER CHAIR AND REFUSED TO TURN TV AND OR MUSIC ON. SHE SEEMS VERY DOWN AND SAD, VERY GREATFUL BUT JUST DOSENT SEEM TO BE DOING WELL. CALL LIGHT WITH IN REACH AND NOTHING ELSE NEEDED AT THIS TIME.
--- NOTE | 2024-11-18 19:48 | NUR ---
RECEIVED REPORT FROM GIOVANI DICKEY. PT RESTING IN BED, REPORTS DIFFICULTY FALLING ASLEEP. INFORMED PT I WILL NEED TO DO HS MEDS AND ASSESS STILL. BED ALARM IN PLACE.
--- NOTE | 2024-11-18 21:46 | NUR ---
BAKER HELPER ASSISTED PT TO BR. NO DEVICE USE, SBA, GAIT STEADY. PT CONTINUES TO BE FORGETFUL AND SOMETIMES IMPULSIVE. BED ALARM IN PLACE FOR SAFETY. VSS. ORIENTED X 3, NOT DATE. DENIES PAIN BUT ACCEPTED OFFER OF PRN TYLENOL FOR HS. LSC. HRR. BTA. ONGOING FREQUENT LOOSE BM'S. ONGOING URINARY URGENCY AND FREQUENCY. UO CLEAR YELLOW. LW SL WNL. SCATTERED BRUISES AND ABRASIONS IN VARIOUS STAGES OF HEALING. CALL LIGHT WITHIN REACH.
--- NOTE | 2024-11-18 23:59 | NUR ---
PT AWAKE, JUST USED BR W/ TELEPHONE TECHNICIAN. NO OTHER NEEDS AT THIS TIME.
--- NOTE | 2024-11-19 00:06 | NUR ---
ASSISTED TO BR AGAIN, SBA. VOIDED SMALL AMT AND HAD XS BM.
--- NOTE | 2024-11-19 02:00 | NUR ---
PT CALLED FOR ASSIST TO BR. SBA, NO DEVICE. VOIDS WNL. REPORTS HAVING "THE POOPS". XS LOOSE BM. BED ALARM IN PLACE.
--- NOTE | 2024-11-19 02:30 | NUR ---
CALL LIGHT ANSWERED, pt UP TO BATHROOM AND VOIDED AND BACK TO BED. STEADY ON FEET. BED ALARM RESUMED AND CALL LIGHT IN REACH.
--- NOTE | 2024-11-19 04:30 | NUR ---
SLEEPING SOUNDLY-APPEARS COMFORTABLE. BED ALARM IN PLACE,
[2024-11-19 05:32] LABS: BASOPHILS 0.4 % (0-2); EOSINOPHILS 0.6 % (0-6); LYMPHOCYTES 16.9 % (24-44); MCH 34.6 (27-36); MCHC 34.2 g/dl (30-36); MCV 101.3 fl (81-99); MONOCYTES 14.7 % (0-12); NEUTROPHILS 67.4 % (39-80); PLATELET COUNT 283 K/uL (140-440); RBC 3.16 M/ul (4.3-5.7); RDW 13.6 (10.5-15.0)
[2024-11-19 05:48] LABS: ALBUMIN 2.9 g/dL (3.4-5.0); ALBUMIN/GLOBULIN RATIO 0.76 (1.1-2.4); BILIRUBIN, TOTAL 0.7 mg/dL (0.2-1.0); BUN/CREATININE RATIO 15.27 (6.0-28.6); CALCIUM 9.2 mg/dL (8.5-10.1); CREATININE, SERUM 0.72 mg/dL (0.55-1.02); MAGNESIUM 1.6 mg/dL (1.8-2.4); PROTEIN, TOTAL 6.7 g/dL (6.4-8.2)
[2024-11-19 06:04] VITALS: BP 118/53
--- NOTE | 2024-11-19 06:22 | NUR ---
vss and i&o's collected, bed alarm resumed and call light in reach. primary rn updated and aware.
--- NOTE | 2024-11-19 06:41 | NUR ---
Used call light plus bed alrm going off, helped to BRP, 1PSBA, voided, did own pericare, back to bed. tolerated well. fresh fluids and warm blanket given on requets. repositions self in bed. Pt on enteric precautions
[2024-11-19 06:59] VITALS: BP 118/53
--- NOTE | 2024-11-19 07:13 | NUR ---
MORNING ASSESSMENT COMPLETE. PT RESTING IN BED, EYES CLOSED BREATHING EVEN AN UNLABORED. CALL LIGHT IN REACH. BED ALARM ON FOR PT SAFETY.
--- NOTE | 2024-11-19 07:37 | NUR ---
YA PT, TOLERATED WELL. AT BEDSIDE.
[2024-11-19] MEDS ORDERED: LOPERAMIDE HCL 2 MG CAP PO PRN (08:00)
[2024-11-19 08:11] VITALS: BP 145/67
--- NOTE | 2024-11-19 08:18 | NUR ---
MORNING ASSESSMENT COMPLETE. AT BEDSIDE. PT IS DOING GOOD THIS MORNING. DOESNT HAVE AN APPETITE, TOOK A FEW BITES OF FOOD. CALL LGHT IN REACH. BED ALARM ON FOR SAFETY.
[2024-11-19] MEDS ORDERED: MAGNESIUM SULFATE 2 GM/50 ML BAG IV ONE (09:00)
[2024-11-19] MEDS ORDERED: AMOX TR-K CLV1 EAC1 PO (09:51)
--- NOTE | 2024-11-19 10:06 | NUR ---
PATIENT UP TO BATHROOM AND BACK TO CHAIR, SBA. I&O'S CHARTED. CALL LIGHT IN REACH. NO FURTHER NEEDS AT THIS TIME.
[2024-11-21 07:35] LABS: NOROVIRUS 1 BY PCR Not Detected (()); NOROVIRUS 2 BY PCR Not Detected (())
== END 2024-11-19 11:55 | disposition home or self-care (01) | DRG 872 ==
LOC: ED 19:13 → MS 19:14
PROVIDERS: Family Medicine; Student in an Organized Health Care Education/Training Program; ADMIT Family Medicine; ATTEND Family Medicine
DX: A41.9 Sepsis, unspecified organism (principal); N39.0 Urinary tract infection, site not specified; A08.4 Viral intestinal infection, unspecified; E83.42 Hypomagnesemia; I10 Essential (primary) hypertension; E86.0 Dehydration; E87.6 Hypokalemia; W18.30XA Fall on same level, unspecified, initial encounter; Z87.19 Personal history of other diseases of the digestive system; Z87.891 Personal history of nicotine dependence; Z90.49 Acquired absence of other specified parts of digestive tract; Z90.710 Acquired absence of both cervix and uterus; Z79.899 Other long term (current) drug therapy; E83.39 Other disorders of phosphorus metabolism
CPT/HCPCS: 36415; 51701; 70450; 70496; 70498; 71045; 74177; 80048; 80053; 81001; 82803; 83605; 83735; 83880; 84100; 84484; 85025; 85610; 85730; 87040; 87045; 87046; 87088; 87502; 93005; 93010; 96366; 96367; 96372; 96375; 96376; 97110; 97116; 97161; 97530; 99285-25; A9270; G0378; J0696; J0780; J1650; J2405; J3475; J3480; J3490; J7030; J7060; J7121; Q9967; U0002

== ENCOUNTER 2024-11-26 04:16 | Emergency (ER) | payer MEDICARE, OTHER ==
[~2024-11-26] VITALS: Ht 157.5 cm; Wt 51.8 kg
[~2024-11-26 04:16] MED LIST changes: +AMOX TR-K CLV1 EAC1 PO; +CITALOPRAM HBR40 MG PO; +LOSARTAN POTASS50 MG PO; +NYSTATIN-TRIAMC15 GM; +TRAMADOL HCL50 MG PO
--- OUTSIDE RECORDS SUMMARY | 2024-11-26 04:23 | XMS ---
PreManage Notification: DIVYA [employer]ENT [employer] Events No recent Security Events currently on file CRITERIA MET - [facility] - 2 Visits in 30 Days CARE PROVIDERS There are no care providers on record at this time. Ute has no Care Guidelines for this patient. [facility] (12 MO.) [facility] T[facility] NOTE: Visits indicate total known visits. ED/C VISIT TRACKING (12 MO.) 11/26/2024 04:[address] [facility] TYPE: Emergency COMPLAINT: - UTI 11/14/2024 19:13 [facility] TYPE: Emergency COMPLAINT: - ALTERTED LOC INPATIENT VISIT TRACKING (12 MO.) 11/16/2024 12:20 [facility] TYPE: Medical Surgical COMPLAINT: - UTI,SEPSIS,INTRACTABLE NAUSEA,VOMITING,DIARRHEA DIAGNOSES: - Acquired absence of both cervix and uterus - Acquired absence of both cervix and uterus - Acquired absence of other specified parts of digestive tract - Acquired absence of other specified parts of digestive tract - Dehydration - Dehydration - Essential (primary) hypertension - Essential (primary) hypertension - Fall on same level, unspecified, initial encounter - Fall on same level, unspecified, initial encounter - Hypokalemia - Hypokalemia - Hypomagnesemia - Hypomagnesemia - Other disorders of phosphorus metabolism - Other disorders of phosphorus metabolism - Other long-term (current) drug therapy - 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
[2024-11-26 04:52] LABS: EOSINOPHILS 3.2 % (0-6); HEMATOCRIT 32.1 % (35.0-50.0); LYMPHOCYTES 39.5 % (24-44); MCH 34.2 (27-36); MCHC 34.2 g/dl (30-36); MONOCYTES 13.6 % (0-12); NEUTROPHILS 42.7 % (39-80); PLATELET COUNT 646 K/uL (140-440); RBC 3.21 M/ul (4.3-5.7); RDW 13.4 (10.5-15.0)
[2024-11-26 05:02] LABS: BILIRUBIN, URINE NEGATIVE (negative); BLOOD/HGB, URINE NEGATIVE (Negative); KETONE, URINE NEGATIVE (Negative); LEUK ESTERASE, URINE NEGATIVE (negative); NITRITE, URINE NEGATIVE (negative)
[2024-11-26 05:15] LABS: ALBUMIN 3.1 g/dL (3.4-5.0); ALBUMIN/GLOBULIN RATIO 0.74 (1.1-2.4); ANION GAP 13.9 (7-21); BILIRUBIN, TOTAL 0.3 mg/dL (0.2-1.0); BUN/CREATININE RATIO 23.86 (6.0-28.6); CALCIUM 9.7 mg/dL (8.5-10.1); CREATININE, SERUM 0.88 mg/dL (0.55-1.02); POTASSIUM 3.9 mmol/L (3.5-5.1); PROTEIN, TOTAL 7.3 g/dL (6.4-8.2)
[2024-11-26] MEDS ORDERED: ANTIFUNGAL113 GM TOP (05:34)
[2024-11-26 05:40] VITALS: BP 111/77
== END 2024-11-26 05:40 | disposition home or self-care (01) ==
LOC: ED 04:16
PROVIDERS: Emergency Medicine
DX: R41.0 Disorientation, unspecified (principal); L30.4 Erythema intertrigo; Z79.2 Long term (current) use of antibiotics
CPT/HCPCS: 36415; 51701; 80053; 81003; 85025; 99284-25

== ENCOUNTER 2024-12-11 07:08 | Emergency (ER) | payer MEDICARE, OTHER ==
[~2024-12-11] VITALS: Ht 157.5 cm; Wt 50.0 kg
[~2024-12-11 07:08] MED LIST changes: +ANTIFUNGAL113 GM TOP
--- OUTSIDE RECORDS SUMMARY | 2024-12-11 07:13 | XMS ---
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 Ute has no Care Guidelines for this patient. Jim VISIT COUNT (12 MO.) 3 [facility] [address] [place] TOTAL 3 NOTE: Visits indicate total known visits. ED/C VISIT TRACKING (12 MO.) 12/11/2024 07:09 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
[2024-12-11] MEDS ORDERED: SODIUM CHLORIDE 0.9% 500 ML IV ONE (07:30)
[2024-12-11 07:33] LABS: BASOPHILS 0.5 % (0-2); EOSINOPHILS 2.1 % (0-6); HEMOGLOBIN 12.9 g/dL (12.0-18.0); LYMPHOCYTES 38.3 % (24-44); MCH 33.7 (27-36); MCHC 33.9 g/dl (30-36); MCV 99.7 fl (81-99); MONOCYTES 10.4 % (0-12); NEUTROPHILS 48.7 % (39-80); PLATELET COUNT 389 K/uL (140-440); RBC 3.81 M/ul (4.3-5.7); RDW 14.2 (10.5-15.0)
[2024-12-11 07:43] LABS: BILIRUBIN, URINE NEGATIVE (negative); BLOOD/HGB, URINE NEGATIVE (Negative); KETONE, URINE NEGATIVE (Negative); LEUK ESTERASE, URINE NEGATIVE (negative); NITRITE, URINE NEGATIVE (negative)
[2024-12-11 07:48] LABS: ALBUMIN 3.8 g/dL (3.4-5.0); ALBUMIN/GLOBULIN RATIO 0.9 (1.1-2.4); ANION GAP 17.9 (7-21); BILIRUBIN, TOTAL 0.8 mg/dL (0.2-1.0); BUN/CREATININE RATIO 21.27 (6.0-28.6); CREATININE, SERUM 0.94 mg/dL (0.55-1.02); POTASSIUM 3.9 mmol/L (3.5-5.1)
[2024-12-11 13:17] VITALS: BP 137/76
== END 2024-12-11 13:19 | disposition home or self-care (01) ==
LOC: ED 07:08
PROVIDERS: Emergency Medicine
DX: R53.1 Weakness (principal); I10 Essential (primary) hypertension; Z87.891 Personal history of nicotine dependence; Z79.899 Other long term (current) drug therapy
CPT/HCPCS: 36415; 70551; 80053; 81003; 85025; 99284-25; J7040

== ENCOUNTER 2025-03-06 06:57 | Emergency (ER) | payer MEDICARE, OTHER ==
[~2025-03-06] VITALS: Ht 157.5 cm; Wt 53.4 kg
[2025-03-06 07:35] LABS: BLOOD/HGB, URINE NEGATIVE (Negative); KETONE, URINE TRACE (Negative); LEUK ESTERASE, URINE NEGATIVE (negative); NITRITE, URINE NEGATIVE (negative)
[2025-03-06] MEDS ORDERED: DONEPEZIL HCL5 MG PO ×2 (07:47)
[2025-03-06 07:48] LABS: BASOPHILS 0.5 % (0.1-1.2); EOSINOPHILS 0.4 % (0.7-5.8); LYMPHOCYTES 32.7 % (19.3-51.7); MCH 33.2 PG (25.6-32.2); MCHC 33.6 g/dL (32.2-35.5); MCV 99.0 fL (79.4-94.8); MONOCYTES 11.4 % (4.7-12.5); NEUTROPHILS 54.8 % (34.0-71.1); RBC 3.88 M/uL (3.93-5.22)
[2025-03-06 08:05] LABS: ALT (SGPT) 24.0 U/L (14-59); AST (SGOT) 23.0 U/L (15-37); GLOMERULAR FILTRATION RATE,EST 61.0 mL/min (>60); PROTEIN, TOTAL 7.9 g/dL (6.4-8.2); UREA NITROGEN 20.0 mg/dL (7-18)
[2025-03-06] MEDS ORDERED: SODIUM CHLORIDE 0.9% 1,000 ML IV ONE (08:15)
[2025-03-06 08:54] VITALS: BP 164/66
--- NOTE | 2025-03-06 12:45 | EKG ---
[facility] [address] [place] [address] Signed Normal sinus rhythm Normal ECG When compared with ECG of 14-NOV-2024 21:56, Vent. rate has decreased BY 38 BPM Minimal criteria for Anterior infarct are no longer present Confirmed by Dulce Lund DO ([id number]) on 03/06/2025 12:45:29 PM Electronically Signed By: DULCE LUND DO 03/06/25 1245 PATIENT NAME: DIVYA TRENT Electrocardiogram DATE OF : 48 PHYSICIAN: DULCE LUND DO REPORT #: [id number] REPORT IS CONFIDENTIAL AND NOT TO BE RELEASED WITHOUT AUTHORIZATION
== END 2025-03-06 08:54 | disposition home or self-care (01) ==
LOC: ED 06:57
PROVIDERS: Emergency Medicine
DX: R55 Syncope and collapse (principal); R42 Dizziness and giddiness; F03.90 Unspecified dementia, unspecified severity, without behavioral disturbance, psychotic disturbance, mood disturbance, and anxiety; I10 Essential (primary) hypertension; Z87.440 Personal history of urinary (tract) infections; Z90.49 Acquired absence of other specified parts of digestive tract; Z79.899 Other long term (current) drug therapy
CPT/HCPCS: 36415; 71045; 80053; 81003; 84484; 85025; 96374; 99284-25; J2405; J7030

== ENCOUNTER 2025-03-06 14:22 | Inpatient (IN) | payer MEDICARE, OTHER ==
[~2025-03-06] VITALS: Ht 157.5 cm; Wt 52.8 kg
[2025-03-06] VITALS (7 sets, daily range): BP systolic 136–177; BP diastolic 76–122
[~2025-03-06 14:22] MED LIST changes: +DONEPEZIL HCL5 MG PO
--- OUTSIDE RECORDS SUMMARY | 2025-03-06 14:29 | XMS ---
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 Ute has no Care Guidelines for this patient. Jim VISIT COUNT (12 MO.) [address] [facility]. TOTAL 5 NOTE: Visits indicate total known visits. ED/C VISIT TRACKING (12 MO.) 03/06/2025 14:[address] [facility] [place] TYPE: Emergency COMPLAINT: - WEAKNESS 03/06/2025 06:58 [facility] [place] TYPE: Emergency COMPLAINT: - DIZZINESS 12/11/2024 07:09 [facility] [place] TYPE: Emergency COMPLAINT: - DIZZINESS DIAGNOSES: - Essential (primary) hypertension - Other mcc (current) drug therapy - Personal history of nicotine dependence - Weakness 11/26/2024 04:17 [facility] [place] TYPE: Emergency COMPLAINT: - UTI DIAGNOSES: - Disorientation, unspecified - Erythema intertrigo - buttermaker (current) use of antibiotics 11/14/2024 19:13 [facility] [place] TYPE: Emergency COMPLAINT: - ALTERTED LOC INPATIENT VISIT TRACKING (12 MO.) 11/16/2024 12:[address] 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
[2025-03-06 14:48] LABS: BASOPHILS 0.6 % (0.1-1.2); EOSINOPHILS 0 % (0.7-5.8); LYMPHOCYTES 35.5 % (19.3-51.7); MCH 32.6 PG (25.6-32.2); MCHC 32.6 g/dL (32.2-35.5); MCV 100.0 fL (79.4-94.8); MONOCYTES 6.5 % (4.7-12.5); NEUTROPHILS 57.2 % (34.0-71.1); RBC 3.74 M/uL (3.93-5.22)
[2025-03-06 15:06] LABS: ALT (SGPT) 24.0 U/L (14-59); AST (SGOT) 24.0 U/L (15-37); GLOMERULAR FILTRATION RATE,EST 45.0 mL/min (>60); PROTEIN, TOTAL 7.8 g/dL (6.4-8.2); UREA NITROGEN 19.0 mg/dL (7-18)
[2025-03-06 16:26] LABS: TSH, 3RD GENERATION 1.611 uIU/mL (0.358-3.740)
[2025-03-06] MEDS ORDERED: LORazepam 2 MG/ML VIAL IV PRN (18:00)
[2025-03-06] MEDS ORDERED: ACETAMINOPHEN 325 MG TAB PO PRN (18:00)
--- NOTE | 2025-03-06 18:21 | NUR ---
DR MARTÍNEZ CALLED REGARDING PT'S HR 160S, ORDERS RECEIVED.
--- NOTE | 2025-03-06 18:29 | NUR ---
PT ARRIVES TO MED-SURG VIA GURNEY, AWAKE AND ALERT. VERBAL REEPORT RECIEVED FROM ER NURSE. PT ROLLS SELF FROM GURNEY TO BED, TOLERATES THIS FAIR. ADMISSION ASSESSMENT STARTED. TELE#[address], SINUS RHYTHM. PT ORIENTED TO SELF, PLACE AND SITUATION, DISORIENTED TO DATE AND UNABLE TO ANSWER SOME QUESTIONS. PT UP TO BSC WITH 1 PERSON ASSIST, VOIDS CLEAR YELLOW URINE. PT HAS AN EPISODE OF NAUSEA AND FLUSHING WITH HR 130'S - 160'S. DR. MARTÍNEZ CONTACTED BY SHIFT LEADNAIMA RN, NEW ORDERS RECIEVED FOR ATIVAN AND EKG. DURING EKG PT HAS ANOTHER EPISODE OF NAUSEA, FLUSHING, AND TACHYCARDIA THAT EVOLVES INTO A SEIZURE. RAPID RESPONSE CALLED. ATIVAN ADMINISTERED. VSS OBTAINED. NEW ORDER RECEIVED TO TRANSFER PT TO CCU. CBG OBTAINED: 163.
[2025-03-06] MEDS ORDERED: LORazepam 2 MG/ML VIAL IV ONE (18:30)
--- NOTE | 2025-03-06 18:33 | NUR ---
PT LEAVES MED-SURG BED, ESCORTED BY GIOVANI DEVRIES.
[2025-03-06] MEDS ORDERED: PHENOBARBITAL SOD 130 MG/ML VIAL ONE (18:48)
[2025-03-06] MEDS ORDERED: LORazepam 2 MG/ML VIAL IV/IM PRN ×2 (19:00→20:30)
[2025-03-06] MEDS ORDERED: FOLIC ACID 1 MG/0.2 ML ML IV SCH (19:01)
[2025-03-06] MEDS ORDERED: LORazepam 2 MG/ML VIAL ONE (19:02)
[2025-03-06] MEDS ORDERED: THIAMINE HCL 200 MG/2 ML VIAL IV SCH (19:02)
[2025-03-06] MEDS ORDERED: LACTATED RINGER'S 1,000 ML IV ONE (19:15)
--- NOTE | 2025-03-06 19:26 | NUR ---
RAPID RESPONSE CALLED FOR PATIENT IN MED/SURG ROOM 121 FOR SEIZURE LIKE ACTIVITY. PT ON TELE WITH HR UP TO 160-170s REGULAR RHYTHM AND NARROW COMPLEX. PATIENT NOTED TO BE STIFF AND GURGLING. 1 MG IV ATIVAN GIVEN-SEE EMAR. PT MOVED TO ROOM [address] MARTÍNEZ TO BEDSIDE SOON AFTER. PT GIVEN ANOTHER 1 MG IV ATIVAN PRIOR TO MD ARRIVAL. HR STILL FLUCTUATING BETWEEN 120-170s. BLOOD PRESSURES ELEVATED 150-160s/80-90s. DR. MARTÍNEZ AT BEDSIDE AND 6 MG IV ADENOSINE ORDERED AND GIVEN (SEE EMAR), FOLLOWED BY 12 MG IV ADENOSINE. HR SLOWED DOWN TO 120s AFTER 12 MG DOSE. 5 MG IV METOPROLOL ALSO GIVEN, AND 130 MG IV PHENOBARBITAL, WELL 2 MORE MG OF IV ATIVAN. PATIENT THRASHING IN BED, INCOHERENT AND RESISTENT TO FOLLOWING DIRECTIONS. PT NOTED TO BE HAVING SOME LIQUID YELLOW DIARRHEA. PAINTER CATH TO BE PLACED. PT'S KAYLYNN REMAINED IN ROOM AND SUPPORTIVE TO PATIENT. KAYLYNN REPORTED TO THIS RN THAT PATIENT NORMALLY DRINKS ABOUT 4-6 OZ OF HARD ALCOHOL PER NIGHT, HOWEVER HE HAS BEEN CUTTING HER DRINKS BACK AND MAKING THEM LESS STRONG. HE REPORTS SHE HASN'T HAD ANY ALCOHOL IN 2 DAYS. PAINTER CATH TO BE PLACED.
[2025-03-06] MEDS ORDERED: METOPROLOL TARTRATE 5 MG/5 ML VIAL IV ONE (19:30)
[2025-03-06] MEDS ORDERED: ADENOSINE 3 MG/ML VIAL IV ONE ×2 (19:30)
[2025-03-06] MEDS ORDERED: PHENOBARBITAL SOD 130 MG/ML VIAL IV ONE (19:30)
--- NOTE | 2025-03-06 19:35 | NUR ---
handoff report received from GIOVANI huitron. patient restless in bed, not following commands, and attempting to pull off gown. patient unable to be redirected. patient incontinent of urine and stool. patient moaning, grimicing, and not opening eyes. patient CIWA score of 20. PRN Ativan given per EMAR. patient on 2L Oxymask, tolerating well. patient heart rate ranging from 90-120's. patient IV sites, WNL and saline locked. patient linen changed, new gown placed. this RN remains in room.
[2025-03-06 19:47] LABS: AMPHETAMINES, URINE NEGATIVE (NEGATIVE); BARBITURATES, URINE NEGATIVE (NEGATIVE); BENZODIAZEPINE, URINE NEGATIVE (NEGATIVE); CANNABINOID, URINE POSITIVE (NEGATIVE); COCAINE, URINE NEGATIVE (NEGATIVE); ECSTASY, URINE NEGATIVE (NEGATIVE); FENTANYL, URINE NEGATIVE (NEGATIVE); METHADONE, URINE NEGATIVE (NEGATIVE); OPIATES, URINE NEGATIVE (NEGATIVE); OXYCODONE, URINE NEGATIVE (NEGATIVE); PHENCYCLIDINE, URINE NEGATIVE (NEGATIVE)
--- NOTE | 2025-03-06 19:50 | NUR ---
PAINTER PLACED BY GIOVANI DEVRIES. BALLOON INFLATED WITH 10ML OF STERILE SALINE. CATHETER SECURED TO RIGHT THIGH WITH STATLOCK AND PAINTER BAG POSITIONED BELOW LEVEL OF BLADDER. PATIENT TOLERATED WELL.
--- NOTE | 2025-03-06 20:11 | NUR ---
CIWA SCORE OF 19. PRN ATIVAN GIVEN PER EMAR.
[2025-03-06] MEDS ORDERED: LIDOCAINE 2% VISCOUS 6 ML SYR TOP ONE (20:15)
[2025-03-06] MEDS ORDERED: PHENOBARBITAL SOD 130 MG/ML VIAL IV STA (20:28)
--- NOTE | 2025-03-06 20:30 | NUR ---
PATIENT CONTINUES TO BE RESTLESS IN BED. PATIENT DIFFICULT TO REDIRECT, NOT FOLLOWING COMMANDS. DR MARTÍNEZ AT BEDSIDE, AND PROVIDED WITH UPATE. NEW ORDER RECEIVED FOR ONE TIME DOSE OF PHENOBARBITAL - SEE EMAR.
--- NOTE | 2025-03-06 21:53 | NUR ---
PATIENT RESTING IN BED WITH EYES CLOSED, RR 20. PATIENT REMAINS ON 2L OXYMASK, SPO2 98%. PATIENT HEART RATE 80-90'S. NO DISTRESS NOTED. PATIENT HOB >30 DEGREES. PATIENT DOOR AND CURTAIN REMAIN OPEN AND VISIBLE FROM NURSING STATION FOR PATIENT SAFETY.
--- NOTE | 2025-03-06 23:13 | NUR ---
PATIENT CIWA SCORE OF 18. PRN ATIVAN GIVEN PER EMAR. PATIENT REPOSITONED ON TO LEFT SIDE. NO FURTHER NEEDS AT THIS TIME. DOOR AND CURTAIN REMAIN OPEN AND PATIENT VISIBLE FROM NURSING STATION.
[2025-03-07] VITALS (21 sets, daily range): BP systolic 118–156; BP diastolic 59–94
--- NOTE | 2025-03-07 02:20 | NUR ---
PATIENT RESTING IN BED WITH EYES CLOSED, RR 18. PATIENT REMAINS ON 2L OXYMASK, SPO2 95%. NO ACUTE DISTRESS NOTED. PATIENT APPEARS TO BE COMFORTABLE. PATIENT IN NSR, HEART RATE 70-80'S. DOOR AND CURTAIN REMAIN OPEN AND PATIENT VISIBLE FROM NURSING STATION. CALL LIGHT IN REACH.
--- NOTE | 2025-03-07 04:45 | NUR ---
patient laying awake in bed with eyes open. when this RN asks patient questions, patient responses are incomprehensible. patient unable to follow commands. patient vital signs stable. no needs at this time. door and curtain remain open. call light in reach.
[2025-03-07 05:14] LABS: BASOPHILS 0.3 % (0.1-1.2); EOSINOPHILS 0 % (0.7-5.8); LYMPHOCYTES 24.7 % (19.3-51.7); MCH 32.7 PG (25.6-32.2); MCHC 33.0 g/dL (32.2-35.5); MCV 99.1 fL (79.4-94.8); MONOCYTES 10.7 % (4.7-12.5); NEUTROPHILS 64.1 % (34.0-71.1); RBC 3.36 M/uL (3.93-5.22)
--- NOTE | 2025-03-07 05:18 | NUR ---
patient taken off 2L oxymask and on room air. patient desats as low as 83% on room air. patient placed back on 2L oxymask, and recovers quickly. patient SPO2 97%. patient repositioned in bed. no further needs at this time. door and curtain remain open and patient visible from nurses station. call light in reach.
[2025-03-07 05:25] LABS: GLOMERULAR FILTRATION RATE,EST 63.0 mL/min (>60); UREA NITROGEN 15.0 mg/dL (7-18)
[2025-03-07] MEDS ORDERED: POTASSIUM CHLORIDE 40 MEQ in DEXTROSE 5% 250 ML IV ONE (07:30)
--- NOTE | 2025-03-07 07:36 | NUR ---
UR CLINICAL REVIEW: 2 MN FOR VERSALUS-PER FURNITURE ASSOCIATE MEETS INPT CRITERIA FOR ALCHOLO WITHDRAWL WITH NEED FOR IV MEDICATION AND CLOSE MONITORING MEDICARE INPT 03/06/25 @ 1626 ORDER MATCHES REG NO AUTH REQUIRED PER MEDICARE GUIDELINES DISCHARGE DISPO PENDING FURTHER CASE MANAGEMENT EVAL
[2025-03-07] MEDS ORDERED: MULTIVITAMINS THERAPEUTIC 1 EA TAB PO SCH (08:00)
--- NOTE | 2025-03-07 08:00 | NUR ---
AM assessment complete and medications administered. Pt drowsy with infrequent eye opening and verbal response, able to state name and location as "in bed". No PO meds given at this time. Pt requiring 2L OM with sleep. HRR, bowel tones active. guidry cath draining, 24 hr urine collection in process over ice. VSS.
[2025-03-07 08:46] LABS: BLOOD/HGB, URINE NEGATIVE (Negative); KETONE, URINE TRACE (Negative); LEUK ESTERASE, URINE NEGATIVE (negative); NITRITE, URINE NEGATIVE (negative)
[2025-03-07] MEDS ORDERED: ENOXAPARIN SODIUM 40 MG/0.4 ML SYR SUB-Q SCH (09:00)
[2025-03-07 09:02] LABS: EPITHELIAL CELLS, URINE 0 /lpf (0-1+)
[2025-03-07 09:03] LABS: BACTERIA, URINE NONE SEEN /hpf (negative); CASTS, URINE NONE SEEN \\lpf; CRYSTALS, URINE NONE SEEN (0-1+); REFLEX CULTURE, URINE No (No)
--- NOTE | 2025-03-07 09:30 | NUR ---
SPOKE WITH SPOUSE, PATIENT IS RESTING IN BED. KAYLYNN, , STATES THEY LIVE IN SINGLE LEVEL HOME WITH 2 STEPS TO GET INSIDE. PATIENT HAS A WALKER BUT DOES NOT USE IT. KAYLYNN PROVIDES TRANSPORTATION FOR PATIENT. DENIES ANY FINANCIAL DIFFICULTIES. KAYLYNN STATES IF PATIENT RETURNS TO BASELINE, HE WILL NEED NO FURTHER ASSISTANCE. DISCUSSED FAMILY RESOURCES AND [place] [employer] IN[employer] WITH KAYLYNN. HE IS INTERESTED BUT DOES NOT WANT ANY INFORMATION UNTIL HE KNOWS HOW PATIENT IS GOING TO PROGRESS. WILL CHECK IN WITH HIM DURING PATIENT STAY IN FACILITY
[2025-03-07] MEDS ORDERED: PHARMACY RENAL DOSE ADJUSTMENT 1 DOSE MISC PO SCH (12:00)
[2025-03-07] MEDS ORDERED: LACTATED RINGER'S 1,000 ML IV SCH (12:15)
[2025-03-07] MEDS ORDERED: PHENOBARBITAL SOD 130 MG/ML VIAL IV ONE (12:30)
--- NOTE | 2025-03-07 12:30 | NUR ---
Patient awake and climbing out of bed, pulling on lines/tubes, stating "I have to pee", guidry draining but patient bladder scanned to ensure no retention- 0ml in bladder. Guidry cath adjusted and pt has no relief. Vaginal area appears to have vesicles with potential purulence, MD at bedside and orders medication and culture swabs to be obtained. per CIWA and patient severe agitation, PRN ativan and 1x dose phenobarbital administered at this time. IVF infusing.
--- NOTE | 2025-03-07 16:30 | NUR ---
Vaginal swab collected, patient requires further IV ativan for severe agitation. IV ABX ordered d/t medical record UA showing E. coli in urine. Pt at bedside throughout day and updated on pt status and plan of care.
[2025-03-07 16:46] LABS: N. GONORRRHOEAE BY PCR NOT DETECTED (NOT DETECT)
--- NOTE | 2025-03-07 18:12 | NUR ---
24 hour urine collected and sent to lab. Ashley removed WNL. Pt resting in bed with eyes closed, RR even and unlabored on 2L OM.
--- NOTE | 2025-03-07 19:30 | NUR ---
HANDOFF REPORT RECEIVED FROM JEFFERSON MATUTE. PATIENT RESTING WITH EYES CLOSED, NO ACUTE DISTRESS NOTED. PATIENT ON 2L OXYMASK, TOLERATING WELL. NO NEEDS AT THIS TIME. CALL LIGHT IN REACH.
--- NOTE | 2025-03-07 19:45 | NUR ---
patient assessment complete. patient restless in bed, pulling at gown and lines. patient speech difficult to understand. patient not following directions and difficult to redirect. patient on 2L oxymask, tolerating well. patient in NSR, heart rate 80-100's. patient IV sites saline locked and WNL. seizure pads in place. this RN remains in room.
--- NOTE | 2025-03-07 19:55 | NUR ---
PATIENT INCONTIENT OF URINE. PATIENT LINEN CHANGED, CASSIE CARE DONE, AND NEW BRIEF PLACED. PUREWICK PLACED. PATIENT CIWA SCORE OF 14. PRN ATIVAN GIVEN PER EMAR. PATIENT REPOSITIONED ON TO LEFT SIDE. NO FURTHER NEEDS AT THIS TIME. DOOR AND CURTAIN REMAIN OPEN, PATIENT VISIBLE FROM NURSING STATION.
--- NOTE | 2025-03-07 22:30 | NUR ---
patient awake, when askes how she feels patient states "fine". patient drifts back to sleep. IV site on right wrist noted to be leaking and reddened. IV taken out, tip intact. site covered with gauze and coband. no furthr needs at this time.
[2025-03-08] VITALS (13 sets, daily range): BP systolic 133–168; BP diastolic 61–96
--- NOTE | 2025-03-08 01:00 | NUR ---
patient resting in bed with eyes closed, RR 20. no distress noted. patient remains on 2L Oxymask, tolerating well. patient has no needs at this time. door and curtain remain open and patient visible from nurses station.
--- NOTE | 2025-03-08 04:20 | NUR ---
patient awake. patient speech much more clear. patient able to state her name and that she is in [place]. patient unable to state correct date and situation. patient restless in bed, pulling at lines and attempting to get out of bed. patiet reoriented, and encouraged to rest. patient repositoned in bed. patient vital signs stable. patient on 1L oxymask, SPO2 97%. door and curtain remain open and patient visible from nursing station.
[2025-03-08 05:38] LABS: BASOPHILS 0.4 % (0.1-1.2); EOSINOPHILS 0.3 % (0.7-5.8); LYMPHOCYTES 24.4 % (19.3-51.7); MCH 32.4 PG (25.6-32.2); MCHC 32.7 g/dL (32.2-35.5); MCV 99.2 fL (79.4-94.8); MONOCYTES 12.6 % (4.7-12.5); NEUTROPHILS 62.0 % (34.0-71.1); RBC 3.64 M/uL (3.93-5.22)
[2025-03-08 05:49] LABS: GLOMERULAR FILTRATION RATE,EST 75.0 mL/min (>60); UREA NITROGEN 10.0 mg/dL (7-18)
--- NOTE | 2025-03-08 06:00 | NUR ---
PATIENT LEFT FOREARM IV NOTED TO BE LEAKING. IV TAKEN OUT, TIP INTACT. SITE COVERED WITH GAUZE AND COBAND. NEW 20G RIGHT AC IV STARTED BY GIOVANI GARCIA. PATIENT INCONTINENT OF URINE, CASSIE CARE DONE. NEW LINEN, BRIEF, AND PUREWICK PLACED. PATIENT ON ROOM AIR, SPO2 92%. PATIENT REPOSITIONED IN BED, NO FURTHER NEEDS AT THIS TIME. DOOR AND CURTAIN REMAIN OPEN, PATIENT VISIBLE FROM NURSES STATION.
--- NOTE | 2025-03-08 06:31 | NUR ---
PATIENT RESTLESS, ATTEMPTING TO GET OUT OF BED. PATIENT REORIENTED AND ENCOURAGED TO REST. PATIENT REPOSITIONED IN BED, WARM BLANKET PROVIDED. NO FURTHER NEEDS. PATIENT DOOR AND CURTAIN REMAIN OPEN, BED ALARM ON.
[2025-03-08 07:04] LABS: FOLATE,SERUM 20.4 ng/mL (>=5.9)
[2025-03-08] MEDS ORDERED: THIAMINE HCL 100 MG TAB PO SCH (08:00)
[2025-03-08] MEDS ORDERED: FOLIC ACID 1 MG TAB PO SCH (08:00)
--- NOTE | 2025-03-08 08:11 | NUR ---
PT RESTING IN BED ON RIGHT SIDE, EYES CLOSED, RR EVEN AND UNLABORED. VS STABLE ON MONITOR. BED ALARM ON, DOOR AND CURTAIN OPEN TO RN STATION. UPDATED ON NIGHT AT BEDSIDE.
[2025-03-08] MEDS ORDERED: POTASSIUM CHLORIDE 40 MEQ in DEXTROSE 5% 250 ML IV ONE (09:00)
[2025-03-08] MEDS ORDERED: MAGNESIUM SULFATE 2 GM/50 ML BAG IV SCH (09:00)
--- NOTE | 2025-03-08 09:15 | NUR ---
AM ASSESSMENT COMPLETE - PT RESTING IN BED WITH EYES CLOSED, OPENS BREIFLY WHILE COMPLETING ASSESSMENT. IV SITE PATENT, SITE WNL. VS STABLE ON MONITOR, ROOM AIR CURRENTLY WHILE SLEEPING. BED ALARM ON, DOOR AND CURTAIN OPEN TO RN STATION.
[2025-03-08] MEDS ORDERED: CYANOCOBALAMIN 1,000 MCG/ML VIAL IM SCH (10:30)
--- NOTE | 2025-03-08 10:31 | NUR ---
PTS OUT TO DESK TO SAY PT NEEDED TO USE THE RESTROOM. PT UNABLE TO FOLLOW COMMANDS TO USE PUREWICK. BED SIDE COMMODE TO BEDSIDE. PT ABLE TO FOLLOW INSTRUCTIONS TO MOVE FEET TO SIDE OF THE BED AND ATTEMPTS TO SIT UP. ASSISTED WITH 1 PERSON ASSIST TO BED SIDE COMMODE AND SECOND NURSE IN TO ASSIST WITH GETTING PT SAT DOWN. PT ABLE TO USE COMMODE AND BACK TO BED WITH 2 PERSON ASSIST. PT NOT SAFE TO SIT ON COMMODE WITHOUT STAFF PRESENCE SHE IS NOT STAYING AWAKE OR SITTING UP APPROPRIATELY. PHYSICAL THERAPT IN ROOM TO WORK WITH PT AFTER GETTING BACK TO BED. PTS PRIMARY RN NOTIFIED.
--- NOTE | 2025-03-08 11:00 | NUR ---
PT UNABLE TO PARTICIPATE WITH PHYSICAL THERAPY COMPLETLY R/T DROWSYNESS. OPENS EYES WHEN ASKED BUT NOT PROLONGED. UNABLE TO HOLD SELF UP WHILE SITTING ON EDGE OF BED. PT BACK TO BED - SIPS OF WATER WITHOUT DIFFICULTY. 2 BITES OF BERMUDIAN TOAST EATEN BEFORE BECOMING TOO DROSWY TO CONTINUE. ORAL CARE COMPLETE. PT ORIENTED TO SELF AND PLACE, HOWEVER QUICKLY BECAME DISORIENTED AFTER RN LEAVING THE ROOM BRIEFLY ASKING "WHO ARE YOU?" "WHERE AM I?". PT STATES HUSBANDS NAME SOMETHING OTHER THAN KAYLYNN. AT RN STATION UPDATED ON PLAN OF CARE AND RESOURCES DISCUSSED WITH CM.
--- NOTE | 2025-03-08 11:00 | NUR ---
To CCU to see Leslie. PT/OT are working with her. Pt spouse arrived and I discussed his plan with him. He is apologizing for his ending up at the hospital. He is upset he attempted to stop her alcohol. Rn and I discussed with him to not feel bad as everyone is different when they have DTs. He discussed pts baseline with the RN and pt does shower and dress self. She also cleans and does household chore with spouse, Dao. Per Dao she has had dementia for 2 years. He feels her dementia has been worsening over the last 3 months. Dao plans on taking Leslie home when she is medically cleared. He has a packet to contact places for caregiving. He also recieved information on how to hire a state paid cg privately. He denies any needs.
--- NOTE | 2025-03-08 11:35 | NUR ---
medications reconciled using pharmacy records and interview
--- NOTE | 2025-03-08 11:36 | NUR ---
IV ANTIBIOTIC INFUSION COMPLETE. IV SITE FLUSHED WITH 10 ML NORMAL SALINE AND IS SALINE LOCKED. IV DRESSING IS CLEAN, DRY, AND INTACT. PATIENT IS LYING IN BED WITH HOB ELEVATED. PATIENT WITH EYES CLOSED AND RESPIRATIONS ARE EVEN AND UNLABORED. CALL LIGHT AND PERSONAL BELONGINGS ARE WITHIN REACH.
--- NOTE | 2025-03-08 11:57 | NUR ---
PT NOT AVAILABLE FOR VISIT. PROVIDED PRAYER.
[2025-03-08 12:59] LABS: CHROMOGRANIN IN SERUM 103 ng/mL (0-187)
--- NOTE | 2025-03-08 12:59 | NUR ---
PT RESTING IN BED ON BACK WITH HOB ELEVATED. PT DROWSY BUT OPENS EYES WITH VOICE/TOUCH STIMULATION. 1 SIP OF WATER TAKEN WITH PROMPTING. PT STATES "YES" WHEN ASKED IF COMFORTABLE, "NO THANK YOU" WHEN ASKED IF SHE NEEDED ANYTHING. PO MEDS REMAIN HELD AT THIS TIME TILL PT MORE ALERT AND ABLE TO SWALLOW MORE THAN 1 SIP AT A TIME. BED ALARM ON, CURTAIN AND DOOR OPEN TO RN STATION.
[2025-03-08 14:25] LABS: GLOMERULAR FILTRATION RATE,EST 91.0 mL/min (>60); UREA NITROGEN 9.0 mg/dL (7-18)
--- NOTE | 2025-03-08 14:41 | NUR ---
RN IN ROOM TO RESPOND TO BED ALARM - PT ASSISTING SELF TO EDGE OF BED, STATES SHE NEEDS TO "GO POTTY". PIVOT TRANSFER TO BSC 2 PERSON, UNSTEADY ON FEET BUT IMPROVED FROM THIS MORNING. PT REORIENTED TO PLACE AND SITUATION SEVERAL TIMES. RETURNS TO SLEEP QUICKLY UPON RETURN TO BED, ON RIGHT SIDE WITH PILLOWS. BED ALARM ON, CURTAIN AND DOOR OPEN TO RN STATION.
[2025-03-08] MEDS ORDERED: METOPROLOL TARTRATE 25 MG TAB PO SCH (15:45)
--- NOTE | 2025-03-08 15:45 | NUR ---
PT ATTEMPTING TO GET OUT OF BED BY SELF. STATES SHE NEEDS TO URINATE, PURWIK ALREADY SUCTIONING URINE IN TUBE. HR NOTED TO BE 130. PT REDIRECTED BACK TO LAYING DOWN AND REPOSISTIONED WITH PILLOWS TO LAY ON SIDE. PT ASKING FOR AND TEARFUL, VOICEMAIL LEFT FOR .
--- NOTE | 2025-03-08 16:14 | NUR ---
AT BEDSIDE - UPDATED ON PLAN OF CARE/STATUS. PT AWAKE AND TALKING TO . NEEDING REORIENTATION TO SITUATION. PO METOPROLOL ADMINISTERED, PT ABLE TO SWALLOW WITHOUT DIFFICULTY. HR 102 WHILE RESTING IN BED ON SIDE.
--- NOTE | 2025-03-08 17:18 | NUR ---
PT ATTEMPTING TO GET OUT OF BED BY SELF - REDIRECTABLE, STATES NEEDS TO PEE. PT ASSISTED TO BSC - 2 PERSON ASSIST. NEEDS PROMPTING TO HOLD SELF UP AND NOT FALL FORWARD OR TO SIDE. PT BACK TO BED AND POSISTIONED WITH PILLOWS. URINE NOTED TO BE RED IN COLOR, CASSIE AREA ASSESSED AND WITHOUT ANY BLEEDING OR INJURY NOTED. MD UPDATED ON URINE COLOR.
[2025-03-08] MEDS ORDERED: LACTATED RINGER'S 1,000 ML IV SCH (17:30)
--- NOTE | 2025-03-08 18:28 | NUR ---
PT ABLE TO WAKE AND SWALLOW PO MEDS WITHOUT DIFFICULTY ONE AT A TIME. PT DENIES WANTING TO EAT. PT REMAINS DISORIENTED TO ALL BUT SELF. SHE IS FOLLOWING DIRECTIONS AND CALM. LR IVF STARTED IN R AC SITE. BED ALARM ON, CURTAIN AND DOOR OPEN TO RN STATION .
--- NOTE | 2025-03-08 19:20 | NUR ---
SHIFT REPORT FROM FATIMAH Pride RN. KRYSTIAN REPORT PATIENT WAS NOTED TO CALL "HELLO" STAFF INTO ROOM. PATIENT ASSISTED WITH LEGS BACK INTO BED, PATIENT SAID, "THANK YOU."
--- NOTE | 2025-03-08 20:05 | NUR ---
PATIENT STARTED MOVING HER LEGS TO EDGE OF BED, THIS RN INTO ROOM, PATIENT SAID, "I NEED TO PEE." TWO RNS TO ASSIST PATIENT UP TO BEDSIDE COMMODE, PATIENT NOTED TO LISTING TO LEFT SIDE WHILE SITTING AT BEDSIDE. PATIENT VERBALIZING APPROPRIATE IN CONVERSATION. SHE IS ONLY ORIENTED TO SELF AND THAT SHE IS NOT AT HOME. PATIENT VOIDED 100ML URINE, NOTED TO HAVE PINK TINGE. PATIENT BACK TO BED, DRANK 100ML OF WATER, FRESH WATER PROVIDED. ASSESSMENT COMPLETE NO NEW CONCERNS FROM DAYSHIFT REPORT.
--- NOTE | 2025-03-08 22:15 | NUR ---
PATIENT ATTEMPTING TO GET OUT OF BED. THIS RN INTO PATIENT ROOM PATIENT ASKED IF SHE NEEDS TO USE THE BATHROOM, PATIENT SAID "YES", TWO RN ASSISTED UP TO BEDSIDE COMMODE. PATIENT CONTINUES TO LIST TO LEFT SIDE, WHEN DIRECTED AND PROMPTED SHE CAN STAND STRAIGHT. PATIENT VOIDED 100ML, SMALL AMOUNT OF BM NOTED IN COMMODE BUCKET. PATIENT BACK TO BED, REPOSITIONED, PILLOWS UNDER LEGS AND BETWEEN KNEES. IVF INFUSING. V/S STABLE
[2025-03-09] VITALS (9 sets, daily range): BP systolic 110–157; BP diastolic 53–97
--- NOTE | 2025-03-09 00:32 | NUR ---
PATIET UP TO BEDSIDE COMMODE, TWO PERSON ASSIST. PATIENT CONTINUES TO BE UNSTEADY, FOLLOW DIRECTIONS WELL. SHE HAD SM LIQUID BM AND URINE MIXED. PATIENT BACK TO BED, ASSESSMENT COMPLETE.
--- NOTE | 2025-03-09 01:00 | NUR ---
PATIENT ASSISTED IN REPOSITIONING TO RIGHT SIDE. WARM BLANKETS PROVIDED.
--- NOTE | 2025-03-09 02:10 | NUR ---
pt up to bsc and back to bed, 1 pa. iv fluids infusing per order. pt states no other needs at this time. rails up, door open for obs. call light in reach.
--- NOTE | 2025-03-09 04:20 | NUR ---
PATIENT UP TO BEDSIDE COMMODE ONE PERSON ASSIST, TWO PERAON ASSIST FOR WIPING AND BACK TO BED. PATIENT NOTED TO BE MORE STEADY, SHE DID NOT LIST TO LEFT WHILE SITTING AT BEDSIDE AND STOOD UP STRAIGHT PIVOT TURNAND SAT ON COMMODE AND SAT STAIGHT UP. PATIENT VOIDED 100ML YELLOW URINE, NO TRACE OF BLOOD NOTED IN COLOR. ALSO BM SMEAR IN DEPENDS.
[2025-03-09 05:23] LABS: BASOPHILS 0.2 % (0.1-1.2); EOSINOPHILS 0.1 % (0.7-5.8); LYMPHOCYTES 16.8 % (19.3-51.7); MCH 32.7 PG (25.6-32.2); MCHC 33.9 g/dL (32.2-35.5); MCV 96.5 fL (79.4-94.8); MONOCYTES 13.1 % (4.7-12.5); NEUTROPHILS 69.4 % (34.0-71.1); RBC 3.73 M/uL (3.93-5.22)
[2025-03-09 05:35] LABS: GLOMERULAR FILTRATION RATE,EST 91.0 mL/min (>60); UREA NITROGEN 7.0 mg/dL (7-18)
--- NOTE | 2025-03-09 06:26 | NUR ---
PATIENT HAS BEEN UP FREQUENTLY TO BEDSIDE COMMODE OVER SHIFT, SHE HAS BEEN VOIDING 100-200ML AT A TIME TOTAL 800ML FOR SHIFT. SHE HAS HAD 3 SMALL LIQUID BM, SHE IS NOTED TO BE MORE ALERT AND MORE STABLE GETTING UP OUT OF BED THIS AM. HER CIWA HAS BEEN 0-4 OVER SHIFT. V/S STABLE. THIS AM SHE HAS BEEN CONCERNED ABOUT HER NOT BEING HERE, OR THAT HE DOESNT KNOW WHERE SHE IS. PATIENT HAS BEEN EASILY REASSURED THAT HE DOES KNOW WHERE SHE IS AND HE WILL BE INTO VISIT TODAY. SHE HAS DRANK 550ML WATER OVER SHIFT. NO NEW CONCERNS ON ASSESSMENT.
[2025-03-09] MEDS ORDERED: MAGNESIUM SULFATE 2 GM/50 ML BAG IV SCH (07:45)
--- NOTE | 2025-03-09 07:45 | NUR ---
PT UP TO COMMODE WITH 1 PERSON ASSIST, UNSTEADY ON FEET BUT IMPROVING COORDINATION. BASELINE DOES NOT USE ASSISTIVE DEVICES AT HOME. URINE CLARITY IMPROVING, STRAW YELLOW IN COLOR. PT FORGETFUL ABOUT CALLING APPROX 30 MINS AGO, REQUESTS TO CALL HIM AGAIN. BED ALARM ON.
--- NOTE | 2025-03-09 07:53 | EKG ---
[facility] [address] [place], [place] [address] Signed Normal sinus rhythm Left axis deviation Septal infarct , age undetermined Abnormal ECG When compared with ECG of 06-MAR-2025 07:55, No significant change was found Confirmed by Chelsea Coy MD ([id number]) on 03/09/2025 7:53:20 AM Electronically Signed By: CHELSEA COY MD 03/09/25 0753 PATIENT NAME: DIVYA TRENT Electrocardiogram DATE OF : 48 PHYSICIAN: CHELSEA COY MD REPORT #: [id number] REPORT IS CONFIDENTIAL AND NOT TO BE RELEASED WITHOUT AUTHORIZATION
--- NOTE | 2025-03-09 08:18 | NUR ---
PT ALERT AND CALM IN BED VISITING WITH . REMAINS FORGETFUL TO SITUATION AND PLACE AND TIME BUT REDIRECTABLE. TAKING SIPS OF WATER AND PROTIEN SHAKE. LR DC'D PER ORDER. IV SITE WNL. PT COMPLAINING OF LEFT ELBOW PAIN, MILD SWELLING WITHOUT REDNESS NOTED. ROM LIMITED IN THAT ELBOW AND PT REPORTS PAIN WITH EXTENSION. STATES SOME CHRONIC JOINT PAIN, PLAN TO WORK ON ROM TODAY. VS STABLE.
--- NOTE | 2025-03-09 08:54 | NUR ---
PT ASSISTED UP TO COMMODE PER REQUEST - VOID 100ML URINE. PT FOLLOWING DIRECTIONS. NOTED TO HAVE CRACKLES IN RIGHT LOWER BASE, DEEP BREATHING/COUGH ENCOURAGED. UP TO BED SIDE CHAIR TO ENCOURAGE LESS DEPENDENT LUNG POSISTION. CHAIR ALARM UNDER. PHYSICAL THERAPY IN ROOM TO TREAT.
--- NOTE | 2025-03-09 10:16 | NUR ---
PT UP TO BSC TO VOID - INC OF LIQUID STOOL IN ATTENDS. PT FEELING URGE TO VOID URINE FREQUENTLY. PT BACK TO BED RESTING ON RIGHT SIDE WITH BED ALARM ON.
--- NOTE | 2025-03-09 11:57 | NUR ---
PT RESTING ON RIGHT SIDE WITH EYES CLOSED, RR EVEN AND UNLABORED. BED ALARM ON.
--- NOTE | 2025-03-09 13:52 | NUR ---
PT UP TO BSC. BACK IN BACK. BED ALARM FOR PT SAFETY. CALL LIGHT IN REACH
--- NOTE | 2025-03-09 14:30 | NUR ---
REPORT RECIEVED FROM GIOVANI SHERIDAN. PATIENT TRANSFERED TO ROOM 110.
--- NOTE | 2025-03-09 14:35 | NUR ---
PT TRANSFERED TO ROOM 110 - VOICEMAIL LEFT FOR NOTIFYING HIM OF ROOM CHANGE.
[2025-03-09 15:33] LABS: RAPID PLASMA REAGIN (RPR) Non Reactive (Non Reactive)
--- NOTE | 2025-03-09 15:50 | NUR ---
PATIENT AT BEDSIDE VISITING WITH PATIENT.
--- NOTE | 2025-03-09 17:04 | NUR ---
DRINK OF ICE WATER PROVIDED. PATIENT WITHOUT FURTHER NEEDS AT THIS TIME. CALL LIGHT AND PERSONAL BELONGINGS ARE WITHIN REACH. CURTAIN OPEN FOR DIRECT VISUALIZATION FROM NURSES STATION. BED ALARM ACTIVATED.
--- NOTE | 2025-03-09 17:14 | NUR ---
MAGDA from Dr. Coy for melatonin 6mg po at bedtime. Order placed in emar.
--- NOTE | 2025-03-09 17:48 | NUR ---
PATIENT IS IN BED AT THIS TIME, SHE NEEDED ASSISTANCE TO THE RESTROOM AND BACK. PATIENT DIDNT WANT TO EAT AT THE MOMENT I CUT UP HER FOOD AND SET IT UP FOR HER SO WHEN SHE IS READY SHE CAN EAT. CALL LIGHT WITH IN REACH, GOT FRESH ICE WATER AND NOTHING ELSE NEEDED AT THIS TIME.
--- NOTE | 2025-03-09 18:35 | NUR ---
PATIENT RESTING IN BED ON HER RIGHT SIDE WITH HER EYES CLOSED. EVEN AND UNLABORED RESPIRATIONS NOTED. CALL LIGHT AND PERSONAL BELONGINGS ARE WITHIN REACH. CURTAIN AND DOOR OPEN FOR DIRECT VISUALIZATION FROM NURSES STATION. BED ALARM ACTIVATED.
[2025-03-09] MEDS ORDERED: MELATONIN 3 MG TAB PO SCH (21:00)
[2025-03-09] MEDS ORDERED: DONEPEZIL HCL 5 MG TAB PO SCH (21:00)
--- NOTE | 2025-03-09 21:17 | NUR ---
Awakens easily. flat affect, on room air. cooperative with vitals and assessments. Up to BRP 1PA, voided small amount rine. took meds with small amount of sips. declined miconazole suppositorium " I dont want you to do it, I dont want to do it either, I dont feel like I have any sickness down there" asked several times still declined. skin warm to touch 99.2 oral. green cover removes, esplained to pt. declines to use IS. Bed alarm in place
--- NOTE | 2025-03-09 22:35 | NUR ---
RESTING, EYES CLOSED, ON ROOM AIR, BED ALRM, TURNS AND REPOSITIONS SELF IN BED
[2025-03-10] VITALS (7 sets, daily range): BP systolic 135–148; BP diastolic 56–77
--- NOTE | 2025-03-10 00:28 | NUR ---
BED ALARM ANSWERED. PT STATING NEED TO USE BATHROOM. COMPOUND FINISHER 1PA TO BATHROOM. PT VOIDED AND ASSISTED BACK TO BED. PT STATES NO FURTHER NEEDS AT THIS TIME. CALL LIGHT WITHIN REACH AND BED ALARM ON.
--- NOTE | 2025-03-10 00:54 | NUR ---
Bed alarm going off, assisted to BRP. voided clear yellow urine. Back to bed, tolerated well, no c/o pain.
--- NOTE | 2025-03-10 02:39 | NUR ---
Resting, eyes closed, no s/s distress. repositions self in bed, Bed alarm in place
--- NOTE | 2025-03-10 04:53 | NUR ---
awakens easily, no c/o pain. temp 99.1, covers removed, declines to lower room temp. declines to use IS at bedside. tolerating very small amount of sips of water. UO below parameters, declines need to get up to BSC at this time. alert and orientedX3. repositions self in bed, redness to L elbow area improved. CIWA 2 at this time
--- NOTE | 2025-03-10 05:09 | NUR ---
PT SHOUTING OUT. PREPARATION DEPARTMENT SUPERVISOR IN ROOM AND PT STATING SHE NEEDED TO USE BATHROOM. PREPARATION DEPARTMENT SUPERVISOR 1PA TO ABTHROOM. PT VOIDED AND HAD SMALL BM. PT ASSISTED BACK TO BED. VITALS AND I&O OBTAINED AND DOCUMENTED. PT REQUESTING PAIN MEDS, STATING HER "WHOLE BODY HURTS". RN NOTIFED. PT STATES NO FURTHER NEEDS AT THIS TIME. CALL LIGHT WITHIN REACH AND BED ALARM ON.
[2025-03-10 05:12] LABS: BASOPHILS 0.2 % (0.1-1.2); EOSINOPHILS 0.1 % (0.7-5.8); LYMPHOCYTES 14.3 % (19.3-51.7); MCH 32.6 PG (25.6-32.2); MCHC 33.4 g/dL (32.2-35.5); MCV 97.4 fL (79.4-94.8); MONOCYTES 12.2 % (4.7-12.5); NEUTROPHILS 72.8 % (34.0-71.1); RBC 3.47 M/uL (3.93-5.22)
--- NOTE | 2025-03-10 05:18 | NUR ---
Pt used call light, up to BRp, voided, back to bed, tolerated fair, c/o pain all over, medicated with Tylenol 650mg po and fresh water on requests. repositions self in bed. still declines to use IS or do CDB. sligth confusion present, asking about her , instructed that knows she is here and will probably be back in am, No I was not here yesterday, I was home" redirected
[2025-03-10 05:23] LABS: GLOMERULAR FILTRATION RATE,EST 78.0 mL/min (>60); UREA NITROGEN 9.0 mg/dL (7-18)
--- NOTE | 2025-03-10 07:37 | NUR ---
REPORT RECIEVED FROM GIOVANI BATISTA. PATIENT RESTING IN BED AND DENIES WANTING TO SIT UP IN HER CHAIR OR ANY NEEDS AT THIS TIME. CALL LIGHT AND PERSONAL BELONGINGS ARE WITHIN REACH. CURTAIN OPEN FOR DIRECT VISUALIZATION FROM NURSES STATION. BED ALARM ACTIVATED.
[2025-03-10] MEDS ORDERED: POTASSIUM CHLORIDE 20 MEQ/15 ML CUP PO ONE ×3 (08:15→13:00)
--- NOTE | 2025-03-10 08:25 | NUR ---
PATIENT MEDICATED PER EMAR. PATIENT SITTING UP IN CHAIR EATING BREAKFAST WITH HER AT BEDSIDE. PATIENT ORIENTED TO SELF THIS MORNING. PATIENT ATE 30% OF BREAKFAST. VANILLA ENSURE PROVIDED, PATIENT CURRENTLY DRINKING THAT. IV FLUSHED WITH 10ML OF NS, DRESSING IS INTACT. IV ABX INFUSING AT THIS TIME. PATIENT AND WITHOUT FURTHER NEEDS AT THIS TIME. CALL LIGHT AND PERSONAL BELONGINGS ARE WITHIN REACH.
[2025-03-10] MEDS ORDERED: METOPROLOL SUCC25 MG PO ×2 (09:31)
--- NOTE | 2025-03-10 09:52 | NUR ---
PATIENT IS CURRENTLY BACK IN BED AFTER EATING BREAKFAST IN THE RECLINER. A SHOWER WAS OFFERED THREE TIMES, BY THIS PLASTIC TOOL MAKER AND LOCOMOTIVE CRANE OPERATOR HELPER ASHLEY, AND PATIENT REFUSED. PATIENT AGREED TO HAVE BED LINENS CHANGED.
--- NOTE | 2025-03-10 10:23 | NUR ---
VERBAL ORDER FROM DR MARTÍNEZ TO ADMINISTER PATIENT 1300 DOSE OF POTASSIUM AT THIS TIME.
[2025-03-10] MEDS ORDERED: VITAMIN B-121000 MCG PO ×2 (10:50)
[2025-03-10 11:54] LABS: HSV SUBTYPE SOURCE Genital (())
== END 2025-03-10 10:56 | disposition home or self-care (01) | DRG 897 ==
LOC: ED 14:22 → MS 16:42 → CCU 18:45 → MS 03-09 14:20
PROVIDERS: Emergency Medicine; ADMIT Student in an Organized Health Care Education/Training Program; ATTEND Student in an Organized Health Care Education/Training Program
DX: F10.239 Alcohol dependence with withdrawal, unspecified (principal); I47.10 Supraventricular tachycardia, unspecified; F02.83 Dementia in other diseases classified elsewhere, unspecified severity, with mood disturbance; N39.0 Urinary tract infection, site not specified; I10 Essential (primary) hypertension; G89.29 Other chronic pain; G93.89 Other specified disorders of brain; E78.5 Hyperlipidemia, unspecified; G30.9 Alzheimer's disease, unspecified; R56.9 Unspecified convulsions; E53.8 Deficiency of other specified B group vitamins; B96.20 Unspecified Escherichia coli [E. coli] as the cause of diseases classified elsewhere; Z90.49 Acquired absence of other specified parts of digestive tract; Z90.710 Acquired absence of both cervix and uterus; Z87.19 Personal history of other diseases of the digestive system; Z87.891 Personal history of nicotine dependence; Z98.890 Other specified postprocedural states; Z79.899 Other long term (current) drug therapy
CPT/HCPCS: 36415; 36592; 51702; 70450; 71045; 74177; 80048; 80053; 80307; 81001; 82607; 82746; 83735; 84100; 84439; 84443; 84484; 85025; 86316; 87529; 93005; 93010; 94799; A9270; G0480; J0153; J0696; J1650; J2060; J2405; J2560; J3411; J3420; J3475; J3480; J7060; J7121; Q9967

== ENCOUNTER 2025-03-11 21:22 | Emergency (ER) | payer MEDICARE, OTHER ==
[~2025-03-11] VITALS: Ht 157.5 cm; Wt 53.9 kg
[~2025-03-11 21:22] MED LIST changes: +METOPROLOL SUCC25 MG PO; +VITAMIN B-121000 MCG PO
--- OUTSIDE RECORDS SUMMARY | 2025-03-11 21:29 | XMS ---
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 [place] - 2 Visits in 30 Days CARE PROVIDERS There are no care providers on record at this time. Ute has no Care Guidelines for this patient. Jim VISIT COUNT (12 MO.) [facility] NOTE: Visits indicate total known visits. ED/UCC VISIT TRACKING (12 MO.) [facility] COMPLAINT: - FEVER 03/06/2025 14:23 [facility] [place] [facility] [place] TYPE: Emergency COMPLAINT: - WEAKNESS 03/06/2025 06:58 [facility] [place] [place] COMPLAINT: - DIZZINESS DIAGNOSES: - Acquired absence of other specified parts of digestive tract - Dizziness and giddiness - Essential (primary) hypertension - Other custodial (current) drug therapy - Personal history of urinary (tract) infections - Syncope and collapse - Unspecified dementia, unspecified severity, without behavioral disturbance, psychotic disturbance, mood disturbance, and anxiety 12/11/2024 07:09 [facility] [place] TYPE: Emergency COMPLAINT: - DIZZINESS DIAGNOSES: - Essential (primary) hypertension - Other intermediate project manager (current) drug therapy - Personal history of nicotine dependence - Weakness 11/26/2024 04:17 [facility] [place] TYPE: Emergency COMPLAINT: - UTI DIAGNOSES: - Disorientation, unspecified - Erythema intertrigo - longterm (current) use of antibiotics 11/14/2024 19:13 [facility] [place] TYPE: Emergency COMPLAINT: - ALTERTED LOC INPATIENT VISIT TRACKING (12 MO.) 03/06/2025 16:42 [facility] [place] TYPE: Medical Surgical COMPLAINT: - FLUSHING, TACHYCARDIA 11/16/2024 12:20 [facility] [place] TYPE: Medical [...] Other disorders of phosphorus metabolism - Other custodial (current) drug therapy - Other intermediate project manager (current) drug therapy - Personal history of nicotine dependence - Personal history of nicotine dependence - Personal history of other diseases of the digestive system - Personal history of other diseases of the digestive system - Sepsis, unspecified organism - Sepsis, unspecified organism - Urinary tract infection, site not specified - Urinary tract infection, site not specified - Viral intestinal infection, unspecified [email or web address]
[2025-03-11 22:23] LABS: MCH 32.6 PG (25.6-32.2); MCHC 33.3 g/dL (32.2-35.5); MCV 97.8 fL (79.4-94.8); RBC 3.65 M/uL (3.93-5.22)
[2025-03-11 22:40] LABS: ALCOHOL, MEDICAL <3 ng/dL (<3); ALT (SGPT) 18 U/L (14-59); AST (SGOT) 17 U/L (15-37); GLOMERULAR FILTRATION RATE,EST 76 mL/min (>60); PROTEIN, TOTAL 7.7 g/dL (6.4-8.2); UREA NITROGEN 19 mg/dL (7-18)
[2025-03-11 22:42] LABS: EOSINOPHILS, MANUAL DIFF 1; LYMPHOCYTES, MANUAL DIFF 25; MONOCYTES, MANUAL DIFF 8; NEUTROPHILS, MANUAL DIFF 66
[2025-03-11 22:44] LABS: LACTIC ACID, BLOOD 0.9 mmol/L (0.4-2.0)
[2025-03-11 23:19] LABS: BLOOD/HGB, URINE NEGATIVE (Negative); KETONE, URINE TRACE (Negative); LEUK ESTERASE, URINE NEGATIVE (negative); NITRITE, URINE NEGATIVE (negative)
[2025-03-12] MEDS ORDERED: CEPHALEXIN500 M1 PO (01:03)
[2025-03-12 01:14] VITALS: BP 142/63
== END 2025-03-12 01:15 | disposition home or self-care (01) ==
LOC: ED 21:22
PROVIDERS: Internal Medicine
DX: L03.114 Cellulitis of left upper limb (principal); Z87.891 Personal history of nicotine dependence; M79.652 Pain in left thigh
CPT/HCPCS: 36415; 71045; 73130; 80053; 81003; 83605; 84550; 85025; 85379; 87040; 93971; 96365; 96375; 99284-25; G0480; J0696; J2405

== ENCOUNTER 2025-06-13 16:59 | Emergency (ER) | payer MEDICARE, OTHER ==
[~2025-06-13] VITALS: Ht 157.5 cm; Wt 51.8 kg
[~2025-06-13 16:59] MED LIST changes: +CEPHALEXIN500 M1 PO; +FLUOXETINE HCL20 MG PO
[2025-06-13 17:17] LABS: BASOPHILS 0.4 % (0.1-1.2); EOSINOPHILS 0.2 % (0.7-5.8); LYMPHOCYTES 34.7 % (19.3-51.7); MCH 32.2 PG (25.6-32.2); MCHC 33.2 g/dL (32.2-35.5); MCV 97.1 fL (79.4-94.8); MONOCYTES 10.9 % (4.7-12.5); NEUTROPHILS 53.7 % (34.0-71.1); RBC 4.10 M/uL (3.93-5.22)
[2025-06-13 17:43] LABS: BLOOD/HGB, URINE NEGATIVE (Negative); KETONE, URINE TRACE (Negative); LEUK ESTERASE, URINE NEGATIVE (negative); NITRITE, URINE NEGATIVE (negative)
[2025-06-13 17:46] LABS: ALT (SGPT) 29.0 U/L (14-59); AST (SGOT) 24.0 U/L (15-37); GLOMERULAR FILTRATION RATE,EST 60.0 mL/min (>60); PROTEIN, TOTAL 8.2 g/dL (6.4-8.2); UREA NITROGEN 20.0 mg/dL (7-18)
[2025-06-13 17:48] LABS: TSH, 3RD GENERATION 2.165 uIU/mL (0.358-3.740)
[2025-06-13 18:13] VITALS: BP 154/73
--- NOTE | 2025-06-14 15:04 | EKG ---
[facility] [address] [facility] [place] [address] Signed Normal sinus rhythm with sinus arrhythmia Left axis deviation Possible Anterior infarct (cited on or before 04-FEB-2021) Abnormal ECG When compared with ECG of 19-APR-2025 11:12, No significant change was found Confirmed by Reinaldo Marinelli MD () on 06/14/2025 3:03:59 PM Electronically Signed By: REINALDO MARINELLI MD 06/14/25 1504 PATIENT NAME: DIVYA TRENT Electrocardiogram DATE OF : 48 PHYSICIAN: REINALDO MARINELLI MD REPORT #: [id number] REPORT IS CONFIDENTIAL AND NOT TO BE RELEASED WITHOUT AUTHORIZATION
== END 2025-06-13 18:14 | disposition home or self-care (01) ==
LOC: ED 16:59
PROVIDERS: Emergency Medicine
DX: R23.2 Flushing (principal); R42 Dizziness and giddiness; I10 Essential (primary) hypertension; Z87.891 Personal history of nicotine dependence; Z79.899 Other long term (current) drug therapy
CPT/HCPCS: 36415; 51701; 80053; 81003; 83735; 84439; 84443; 84484; 85025; 93005; 93010; 99284

== ENCOUNTER 2025-07-18 11:55 | Emergency (ER) | payer MEDICARE, OTHER ==
[~2025-07-18] VITALS: Ht 157.5 cm; Wt 51.8 kg
--- OUTSIDE RECORDS SUMMARY | ~2025-07-18 | XMS | Continuity of Care Document ---
Demographics + + + | Address | [address] | | | [place] [address] | + + + | Preferred Language | Unknown | + + + | Marital Status | | + + + | Roman Catholic Affiliation | Unknown | + + + | Race | White | + + + | Ethnic Group | Not or | + + + Author + + + | Author | [facility] | + + + | Organization | [facility] | + + + | Address | [address] | | | [place] [address] | + + + | Phone | | + + + Care Team Providers + + + + | Care Communications Designer Name | Role | Phone | + + + + Unavailable | Unavailable | + + + + Unavailable | Unavailable | + + + + Allergies and Intolerances + + + + + + | date | description | facility | reaction | severity | + + + + + + | 2025-04-19 | UNK | [facility] - | (no reaction) | (no severity) | | 00:00 | [facility] | | | + + + + + + Encounters No information. Functional Status No information. Immunizations No information. Medications + + + + | date | description | facility | + + + + | (no date) | CETIRIZINE HCL | [facility] | | | | [facility] | + + + + | (no date) | SIMVASTATIN | [facility] | | | | [facility] | + + + + | (no date) | CALCIUM CARBONATE | [facility] | | | | [facility] | + + + + | (no date) | ASPIRIN | [facility] | | | | [facility] | + + + + | (no date) | CITALOPRAM HYDROBROMIDE | [facility] | | | | [facility] | + + + + | (no date) | FLUOXETINE HCL | [facility] | | | | [facility] | + + + + | (no date) | ASPIRIN | [facility] | | | | [facility] | + + + + | (no date) | ATORVASTATIN | [facility] | | | | [facility] | + + + + | (no date) | DICLOFENAC SODIUM | [facility] | | | | [facility] | + + + + | (no date) | | [facility] | | | LOSARTAN/HYDROCHLOROTHIAZID | [facility] | | | E | | + + + + | (no date) | DONEPEZIL HCL | [facility] | | | | [facility] | + + + + Problems + + + + | date | description | facility | + + + + | 2025-04-19 00:00 | [place] [facility] | | | | [facility] | + + + + Procedures No information. Results/Labs +--------+--------+ +---------+--------+---------+ | test | date | facility | value | unit | notes | +--------+--------+ +---------+--------+---------+ + + | Result panel 1 | + + + + + +--------+ + + | WBC # Bld | 2025-06-13 | | 8.38 | (missing) | (missing) | | Auto | 17:12:07 | [facility] | | | | + + + +--------+ + + + + | Result panel 2 | + + + + + +--------+ + + | Lymphocytes | 2025-06-13 | | 34.7 | (missing) | (missing) | | NFr Bld | 17:12:07 | [facility] | | | | | Auto | [facility] | | | | + + + +--------+ + + + + | Result panel 3 | + + + + + +--------+ + + | Monocytes | 2025-06-13 | | 10.9 | (missing) | (missing) | | NFr Bld Auto | 17:12:07 | [facility] | | | | + + + +--------+ + + + + | Result panel 4 | + + + + + +-------+ + + | Eosinophil | 2025-06-13 | | 0.2 | (missing) | (missing) | | NFr Bld Auto | 17:12:07 | [facility] | | | | + + + +-------+ + + + + | Result panel 5 | + + + + + +-------+ + + | Basophils | 2025-06-13 | | 0.4 | (missing) | (missing) | | NFr Bld Auto | 17:12:07 | [facility] | | | | + + + +-------+ + + + + | Result panel 6 | + + + + + +--------+ + + | RBC # Bld | 2025-06-13 | | 4.10 | (missing) | (missing) | | Auto | 17:12:07 | [facility] | | | | + + + +--------+ + + + + | Result panel 7 | + + + + + +-------+---------+ + | Glucose | 2025-06-13 | | 113 | mg/dL | (missing) | | SerPsandy-Jass | 17:12:07 | [facility] | | | | + + + +-------+---------+ + + + | Result panel 8 | + + + + + +------+---------+ + | BUN | 2025-06-13 | | 20 | mg/dL | (missing) | | SerPl-mCnc | 17:12:07 | [facility] | | | | + + + +------+---------+ + + + | Result panel 9 | + + + + + +--------+---------+ + | Creat | 2025-06-13 | | 0.98 | mg/dL | (missing) | | SerPl-mCnc | 17:12:07 | [facility] | | | | + + + +--------+---------+ + + + | Result panel 10 | + + + + + +------+ + + | eGFRcr | 2025-06-13 | | 60 | (missing) | (missing) | | SerPlBld | 17:12:07 | [facility] | | | | | CKD-EPI 2020 | [facility] | | | | + + + +------+ + + + + | Result panel 11 | + + + + + +--------+ + + | Hgb | 2025-06-13 | | 13.2 | (missing) | (missing) | | [facility] | 17:12:07 | [facility] | | | | + + + +--------+ + + + + | Result panel 12 | + + + + + +---------+ + + | BUN/Creat | 2025-06-13 | | 20.40 | (missing) | (missing) | | SerPl | 17:12:07 | [facility] | | | | + + + +---------+ + + + + | Result panel 13 | + + + + + +-------+ + + | Sodium | 2025-06-13 | | 140 | (missing) | (missing) | | SerPl-sCnc | 17:12:07 | [facility] | | | | + + + +-------+ + + + + | Result panel 14 | + + + + + +-------+ + + | Potassium | 2025-06-13 | | 3.4 | (missing) | (missing) | | SerPl-sCnc | 17:12:07 | [facility] | | | | + + + +-------+ + + + + | Result panel 15 | + + + + + +-------+ + + | Chloride | 2025-06-13 | | 103 | (missing) | (missing) | | SerPl-sCnc | 17:12:07 | [facility] | | | | + + + +-------+ + + + + | Result panel 16 | + + + + + +------+ + + | CO2 | 2025-06-13 | | 25 | (missing) | (missing) | | SerPl-sCnc | 17:12:07 | [facility] | [facility] | | | | + + + +------+ + + + + | Result panel 17 | + + + + + +--------+ + + | Anion Gap | 2025-06-13 | | 15.4 | (missing) | (missing) | | SerPl | 17:12:07 | [facility] | | | | | Calculated.4 | [facility] | Ions-sCnc | [facility] | | | | + + + +--------+ + + + + | Result panel 18 | + + + + + +-------+---------+ + | Calcium | 2025-06-13 | | 9.4 | mg/dL | (missing) | | Barry-Jass | 17:12:07 | [facility] | [facility] | | | | + + + +-------+---------+ + + + | Result panel 19 | + + + + + +-------+---------+ + | Magnesium | 2025-06-13 | | 1.8 | mg/dL | (missing) | | SerPl-mCjassi | 17:12:07 | [facility] | [facility] | | | | + + + +-------+---------+ + + + | Result panel 20 | + + + + + +-------+ + + | Prot | 2025-06-13 | | 8.2 | (missing) | (missing) | | [facility] | 17:12:07 | [facility] | [facility] | | | | + + + +-------+ + + + + | Result panel 21 | + + + + + +-------+ + + | Albumin | 2025-06-13 | | 4.2 | (missing) | (missing) | | SerPl-mCnc | 17:12:07 | [facility] | | | | + + + +-------+ + + + + | Result panel 22 | + + + + + +--------+ + + | Hct VFr.DF | 2025-06-13 | | 39.8 | (missing) | (missing) | | Bld Auto | 17:12:07 | [facility] | | | | + + + +--------+ + + + + | Result panel 23 | + + + + + +-------+ + + | Globulin | 2025-06-13 | | 4.0 | (missing) | (missing) | | Ser-mCnc | 17:12:07 | [facility] | | | | + + + +-------+ + + + + | Result panel 24 | + + + + + +--------+ + + | | 2025-06-13 | | 1.05 | (missing) | (missing) | | Albumin/Glob | 17:12:07 | [facility] | | | | | SerPl | [facility] | | | | + + + +--------+ + + + + | Result panel 25 | + + + + + +-------+---------+ + | Bilirub | 2025-06-13 | | 0.5 | mg/dL | (missing) | | SerPl-mCnc | 17:12:07 | [facility] | [facility] | | | | + + + +-------+---------+ + + + | Result panel 26 | + + + + + +------+ + + | AST | 2025-06-13 | | 24 | (missing) | (missing) | | SerPl-cCnc | 17:12:07 | [facility] | | | | + + + +------+ + + + + | Result panel 27 | + + + + + +------+ + + | ALT | 2025-06-13 | | 29 | (missing) | (missing) | | SerPl-cCnc | 17:12:07 | [facility] | | | | + + + +------+ + + + + | Result panel 28 | + + + + + +-------+ + + | ALP | 2025-06-13 | | 133 | (missing) | (missing) | | SerPl-cCnc | 17:12:07 | [facility] | | | | + + + +-------+ + + + + | Result panel 29 | + + + + + +-------+ + + | Troponin I | 2025-06-13 | | 9.8 | (missing) | (missing) | | SerPl | 17:12:07 | [facility] | | | | | HS-Jass | | - | | | | | | | [facility] | | | | + + + +-------+ + + + + | Result panel 30 | + + + + + +---------+ + + | TSH SerPl | 2025-06-13 | | 2.165 | (missing) | (missing) | | DL<=0.005 | 17:12:07 | [facility] | | | | | mIU/L-aCnc | | - | | | | | | | [facility] | | | | + + + +---------+ + + + + | Result panel 31 | + + + + + +--------+ + + | RBC Auto | 2025-06-13 | | 97.1 | (missing) | (missing) | | | 17:12:07 | [facility] | | | | | | | - | | | | | | | [facility] | | | | + + + +--------+ + + + + | Result panel 32 | + + + + + +--------+ + + | MCH RBC Qn | 2025-06-13 | | 32.2 | (missing) | (missing) | | Auto | 17:12:07 | [facility] | | | | + + + +--------+ + + + + | Result panel 33 | + + + + + +--------+ + + | MCHC RBC | 2025-06-13 | | 33.2 | (missing) | (missing) | | Auto-EntMCnc | 17:12:07 | [facility] | | | | + + + +--------+ + + + + | Result panel 34 | + + + + + +-------+ + + | Platelet # | 2025-06-13 | | 375 | (missing) | (missing) | | Bld Auto | 17:12:07 | [facility] | | | | + + + +-------+ + + + + | Result panel 35 | + + + + + +--------+ + + | Neutrophils | 2025-06-13 | | 53.7 | (missing) | (missing) | | NFr Bld | 17:12:07 | [facility] | | | | | Auto | | [facility] | | | | + + + +--------+ + + + + | Result panel 36 | + + + + + + + + + | Color Ur | 2025-06-13 | | YELLOW | (missing) | (missing) | | Auto | 17:31:07 | [facility] | | | | + + + + + + + + + | Result panel 37 | + + + + + +---------+ + + | Character | 2025-06-13 | | CLEAR | (missing) | (missing) | | Ur | 17:31:07 | [facility] | | | | + + + +---------+ + + + + | Result panel 38 | + + + + + + + + + | Glucose Ur | 2025-06-13 | | NEGATIVE | (missing) | (missing) | | Ql Strip | 17:31:07 | [facility] | | | | + + + + + + + + + | Result panel 39 | + + + + + + + + + | Shefali Montanez | 2025-06-13 | | NEGATIVE | (missing) | (missing) | | Ql Strip | 17:31:07 | [facility] | | | | + + + + + + + + + | Result panel 40 | + + + + + +---------+ + + | Ketonealysia Ur | 2025-06-13 | | TRACE | (missing) | (missing) | | Ql Strip | 17:31:07 | [facility] | | | | + + + +---------+ + + + + | Result panel 41 | + + + + + +---------+ + + | Sp Gr Ur | 2025-06-13 | | 1.025 | (missing) | (missing) | | Strip | 17:31:07 | [facility] | | | | + + + +---------+ + + + + | Result panel 42 | + + + + + + + + + | Hgb Ur Ql | 2025-06-13 | | NEGATIVE | (missing) | (missing) | | Strip | 17:31:07 | [facility] | | | | + + + + + + + + + | Result panel 43 | + + + + + +-------+ + + | pH Ur Strip | 2025-06-13 | | 6.0 | (missing) | (missing) | | | 17:31:07 | [facility] | | | | + + + +-------+ + + + + | Result panel 44 | + + + + + + + + + | Prot Ur | 2025-06-13 | | NEGATIVE | (missing) | (missing) | | Strip-mCnc | 17:31:07 | [facility] | | | | + + + + + + + + + | Result panel 45 | + + + + + + + + + | | 2025-06-13 | | NORMAL | (missing) | (missing) | | Urobilinogen | 17:31:07 | [facility] | | | | | Ur | [facility] Strip-mCnc | [facility] | | | | + + + + + + + + + | Result panel 46 | + + + + + + + + + | Nitrite Ur | 2025-06-13 | | NEGATIVE | (missing) | (missing) | | Ql Strip | 17:31:07 | [facility] | | | | [facility] | | | | + + + + + + + + + | Result panel 47 | + + + + + + + + + | Leukocyte | 2025-06-13 | | NEGATIVE | (missing) | (missing) | | esterase Ur | 17:31:07 | [facility] | | | | | Ql Strip | [facility] | | | | + + + + + + + Social History +--------+ + + | date | description | facility | +--------+ + + Vital Signs + + + +---------+ | date | measurement | value | units | + + + +---------+ | 2025-06-13 00:00 | BMI | 20.9 | kg/m2 | + + + +---------+ | 2025-06-13 00:00 | BP_diastolic | 73 | mmHg | + + + +---------+ | 2025-06-13 00:00 | BP_systolic | 154 | mmHg | + + + +---------+ | 2025-06-13 00:00 | heart_rate | 69 | /min | + + + +---------+ | 2025-06-13 00:00 | height_metric | 157.48 | cm | + + + +---------+ | 2025-06-13 00:00 | height_standard | 62 | in | + + + +---------+ | 2025-06-13 00:00 | o2_saturation | 96 | % | + + + +---------+ | 2025-06-13 00:00 | respiration_rate | 15 | /min | + + + +---------+ | 2025-06-13 00:00 | | 98 | F | | | temperature_standar | | | | | d | | | + + + +---------+ | 2025-06-13 00:00 | weight_metric | 51.8 | kg | + + + +---------+ | 2025-06-13 00:00 | weight_standard | 114.200 | lb | + + + +---------+"
--- OUTSIDE RECORDS SUMMARY | 2025-07-18 11:56 | XMS ---
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 Ute has no Care Guidelines for this patient. Jim VISIT COUNT (12 MO.) 9 [facility] TOTAL 9 NOTE: Visits indicate total known visits. ED/UCC VISIT TRACKING (12 MO.) 07/18/2025 11:55 [facility] [place] TYPE: Emergency COMPLAINT: - FALL 06/13/2025 17:00 [facility] [place] TYPE: Emergency COMPLAINT: - DIZZY, FEVER DIAGNOSES: - Dizziness and giddiness - Essential (primary) hypertension - Flushing - Flushing - Other chcf (current) drug therapy - Personal history of nicotine dependence - Unspecified convulsions 04/19/2025 10:57 [facility] [place] TYPE: Emergency COMPLAINT: - DIZZINESS DIAGNOSES: - Dizziness and giddiness - Essential (primary) hypertension - Flushing - Other chcf (current) drug therapy - Personal history of nicotine dependence - Restlessness and agitation - Unspecified dementia, unspecified severity, with agitation - Unspecified dementia, unspecified severity, without behavioral disturbance, psychotic disturbance, mood disturbance, and anxiety 03/11/2025 21:22 [facility] [place] TYPE: Emergency COMPLAINT: - FEVER DIAGNOSES: - Cellulitis of left upper limb - Dizziness and giddiness - Pain in left thigh - Pain in right hand - Personal history of nicotine dependence 03/06/2025 14:23 [facility] [place] TYPE: Emergency COMPLAINT: - WEAKNESS 03/06/2025 06:58 [facility] [place] TYPE: Emergency COMPLAINT: - DIZZINESS DIAGNOSES: - Acquired absence of other specified parts of digestive tract - Dizziness and giddiness - Essential (primary) hypertension - Other medical data analyst (current) drug therapy - Personal history of urinary (tract) infections - Syncope and collapse - Unspecified dementia, unspecified severity, without behavioral disturbance, psychotic disturbance, mood disturbance, and anxiety 12/11/2024 07:09 [facility] [place] TYPE: Emergency COMPLAINT: - DIZZINESS DIAGNOSES: - Essential (primary) hypertension - Other medical data analyst (current) drug therapy - Personal history of nicotine dependence - Weakness 11/26/2024 04:17 [facility] [place] TYPE: Emergency COMPLAINT: - UTI DIAGNOSES: - Disorientation, unspecified - Erythema intertrigo - half-way (current) use of antibiotics 11/14/2024 19:13 [facility] [place] TYPE: Emergency COMPLAINT: - ALTERTED LOC INPATIENT VISIT TRACKING (12 MO.) 03/06/2025 16:42 [facility] [place] TYPE: Medical Surgical COMPLAINT: - FLUSHING, TACHYCARDIA DIAGNOSES: - Acquired absence of both cervix and uterus - Acquired absence of other specified parts of digestive tract - Alcohol dependence with withdrawal, unspecified - Alzheimer's disease, unspecified - Deficiency of other specified B group vitamins - Dementia in other diseases classified elsewhere, unspecified severity, with mood disturbance - Essential (primary) hypertension - Hyperlipidemia, unspecified - Other chronic pain - Other chcf (current) drug therapy - Other specified disorders of brain - Other specified postprocedural states - Personal history of nicotine dependence - Personal history of other diseases of the digestive system - Supraventricular tachycardia, unspecified - Tachycardia, unspecified - Unspecified convulsions - Unspecified Escherichia coli [E. coli] as the cause of diseases classified elsewhere - Urinary tract infection, site not specified 11/16/2024 12:[address] [facility] [place] TYPE: Medical Surgical COMPLAINT: - [...] Other disorders of phosphorus metabolism - Other chcf (current) drug therapy - Other chcf (current) drug therapy - Personal history of nicotine dependence - Personal history of nicotine dependence - Personal history of other diseases of the digestive system - Personal history of other diseases of the digestive system - Sepsis, unspecified organism - Sepsis, unspecified organism - Urinary tract infection, site not specified - Urinary tract infection, site not specified - Viral intestinal infection, unspecified [email or web address]
[2025-07-18 12:26] LABS: BASOPHILS 0.6 % (0.1-1.2); EOSINOPHILS 0.1 % (0.7-5.8); LYMPHOCYTES 20.9 % (19.3-51.7); MCH 32.0 PG (25.6-32.2); MCHC 32.9 g/dL (32.2-35.5); MCV 97.4 fL (79.4-94.8); MONOCYTES 4.9 % (4.7-12.5); NEUTROPHILS 72.6 % (34.0-71.1); RBC 4.31 M/uL (3.93-5.22)
[2025-07-18 12:30] LABS: INR 1.01 (0.80-1.30); PROTIME 12.9 Sec (11.2-14.2)
[2025-07-18] MEDS ORDERED: LORazepam 2 MG/ML VIAL IV ONE (12:30)
[2025-07-18 12:39] LABS: BLOOD/HGB, URINE TRACE-I (Negative); KETONE, URINE NEGATIVE (Negative); LEUK ESTERASE, URINE NEGATIVE (negative); NITRITE, URINE NEGATIVE (negative)
[2025-07-18 12:43] LABS: ALCOHOL, MEDICAL <3 ng/dL (<3); ALT (SGPT) 28 U/L (14-59); AST (SGOT) 28 U/L (15-37); GLOMERULAR FILTRATION RATE,EST 53 mL/min (>60); PROTEIN, TOTAL 7.9 g/dL (6.4-8.2); TSH, 3RD GENERATION 3.976 uIU/mL (0.358-3.740); UREA NITROGEN 19 mg/dL (7-18)
[2025-07-18 12:49] LABS: CRYSTALS, URINE NONE SEEN (0-1+); EPITHELIAL CELLS, URINE SQUAMOUS 1+ /lpf (0-1+)
[2025-07-18 12:50] LABS: BACTERIA, URINE NONE SEEN /hpf (negative); CASTS, URINE NONE SEEN \\lpf; REFLEX CULTURE, URINE No (No)
[2025-07-18 13:03] LABS: AMPHETAMINES, URINE NEGATIVE (NEGATIVE); BARBITURATES, URINE NEGATIVE (NEGATIVE); BENZODIAZEPINE, URINE NEGATIVE (NEGATIVE); CANNABINOID, URINE POSITIVE (NEGATIVE); COCAINE, URINE NEGATIVE (NEGATIVE); ECSTASY, URINE NEGATIVE (NEGATIVE); FENTANYL, URINE NEGATIVE (NEGATIVE); METHADONE, URINE NEGATIVE (NEGATIVE); OPIATES, URINE NEGATIVE (NEGATIVE); OXYCODONE, URINE NEGATIVE (NEGATIVE); PHENCYCLIDINE, URINE NEGATIVE (NEGATIVE)
[2025-07-18] MEDS ORDERED: SODIUM CHLORIDE 0.9% 1,000 ML IV PRN ×2 (14:15→16:00)
[2025-07-18 18:53] LABS: ALT (SGPT) 22.0 U/L (14-59); AST (SGOT) 30.0 U/L (15-37); GLOMERULAR FILTRATION RATE,EST 84.0 mL/min (>60); PROTEIN, TOTAL 6.8 g/dL (6.4-8.2); UREA NITROGEN 17.0 mg/dL (7-18)
[2025-07-18 19:25] VITALS: BP 146/74
[2025-07-19 16:53] LABS: THYROXINE 6.56 ug/dL (4.50-11.70)
== END 2025-07-18 19:25 | disposition home or self-care (01) ==
LOC: ED 11:55
PROVIDERS: Emergency Medicine
DX: R56.9 Unspecified convulsions (principal); I10 Essential (primary) hypertension; Z79.899 Other long term (current) drug therapy; Z87.891 Personal history of nicotine dependence
CPT/HCPCS: 36415; 51701; 70450; 80053; 80307; 81001; 82140; 83605; 84436; 84443; 84484; 85025; 85610; 96374; 99284-25; G0480; J2060; J7030

== ENCOUNTER 2025-07-20 07:27 | Emergency (ER) | payer MEDICARE, OTHER ==
[~2025-07-20] VITALS: Ht 157.5 cm; Wt 51.5 kg
--- OUTSIDE RECORDS SUMMARY | ~2025-07-20 | XMS | Continuity of Care Document ---
Demographics + + + | Address | [address] | | | [place] [address] | + + + | Preferred Language | Unknown | + + + | Marital Status | | + + + | Roman Catholic Affiliation | Unknown | + + + | Race | White | + + + | Ethnic Group | Not or | + + + Author + + + | Author | [facility] | + + + | Organization | [facility] | + + + | Address | [address] | | | [place] [address] | + + + | Phone | | + + + Care Team Providers + + + + | Care Air Traffic Control Specialist Name | Role | Phone | + + + + Unavailable | Unavailable | + + + + Unavailable | Unavailable | + + + + Allergies No information. Encounters No information. Functional Status No information. Immunizations No information. Medications + + + + | date | description | facility | + + + + | (no date) | CETIRIZINE HCL | [facility] | | | | [facility] | + + + + | (no date) | SIMVASTATIN | [facility] | | | | [facility] | + + + + | (no date) | CALCIUM CARBONATE | [facility] | | | | [facility] | + + + + | (no date) | [facility]IRIN | [facility] | | | | [facility] | + + + + | (no date) | CITALOPRAM HYDROBROMIDE | [facility] | | | | [facility] | + + + + | (no date) | FLUOXETINE HCL | [facility] | | | | [facility] | + + + + | (no date) | ASPIRIN | [facility] | | | | [facility] | + + + + | (no date) | ATORVASTATIN | [facility] | | | | [facility] | + + + + | (no date) | DICLOFENAC SODIUM | [facility] | | | | [facility] | + + + + | (no date) | | [facility] | | | LOSARTAN/HYDROCHLOROTHIAZID | [facility] | | | E | | + + + + | (no date) | DONEPEZIL HCL | [facility] | | [facility] | + + + + Problems No information. Procedures No information. Results/Labs +--------+--------+ +---------+--------+---------+ | [...] 113 | mg/dL | (missing) | | SerPl-mCnc [...] 13.2 | (missing) | (missing) | | Bld-Jass | 17:12:07 | [facility] | | | | | | | [...] | | | | Calculated.4 | [facility] | Ions-sCnc | [facility] | | | | + + + +--------+ + + + + | Result panel 18 | + + + + + +-------+---------+ + | Calcium | 2025-06-13 | | 9.4 | mg/dL | (missing) | | SerPl-Jass | 17:12:07 | [facility] | | | [...] 1.8 | mg/dL | (missing) | | SerPl-mCnc [...] 8.2 | (missing) | (missing) | | SerPl-Jass | 17:12:07 | [facility] | | | | | | | [...] | [facility] | | | | | HS-Theanc | | - [facility] | | | [...] | | | mIU/L-aCnc | | - [facility] | | | [...] + + + + + + | Bilirub Ur | 2025-06-13 | | NEGATIVE | [...] + + + +---------+ + + | Ketones Ur | 2025-06-13 | | TRACE | [...] | (missing) | (missing) | | | :31:07 | [facility] | | | | | [...]
--- OUTSIDE RECORDS SUMMARY | 2025-07-20 07:28 | XMS ---
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 [facility] has no Care Guidelines for this patient. E.DSiobhan VISIT COUNT (12 MO.) [facility] T[facility] NOTE: Visits indicate total known visits. ED/UCC VISIT TRACKING (12 MO.) [facility] 07[facility] [place] [facility] COMPLAINT: - RIB INJURY 07/18/2025 11:55 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 - Personal history of nicotine dependence - Unspecified convulsions 04/19/2025 10:57 [facility] [place] TYPE: Emergency COMPLAINT: - DIZZINESS DIAGNOSES: - Dizziness and giddiness - Essential (primary) hypertension - [place] - Other usp (current) drug therapy - Personal history of [...] giddiness - Essential (primary) hypertension - Other usp (current) drug therapy - Personal history of urinary (tract) infections - Syncope and collapse - Unspecified dementia, unspecified severity, without behavioral disturbance, psychotic disturbance, mood disturbance, and anxiety 12/11/2024 07:09 [facility] [place] TYPE: Emergency COMPLAINT: - DIZZINESS DIAGNOSES: - Essential (primary) hypertension - 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
[2025-07-20] MEDS ORDERED: QUETIAPINE FUMARATE 25 MG TAB PO ONE (08:00)
[2025-07-20] MEDS ORDERED: SODIUM CHLORIDE 0.9% 500 ML IV ONE (08:00)
[2025-07-20] MEDS ORDERED: ACETAMINOPHEN 325 MG TAB PO ONE (08:00)
[2025-07-20 08:36] LABS: BASOPHILS 0.4 % (0.1-1.2); EOSINOPHILS 0 % (0.7-5.8); LYMPHOCYTES 15.3 % (19.3-51.7); MCH 31.7 PG (25.6-32.2); MCHC 33.2 g/dL (32.2-35.5); MCV 95.5 fL (79.4-94.8); MONOCYTES 9.0 % (4.7-12.5); NEUTROPHILS 75.0 % (34.0-71.1); RBC 3.98 M/uL (3.93-5.22)
[2025-07-20 08:48] LABS: ALT (SGPT) 23.0 U/L (14-59); AST (SGOT) 24.0 U/L (15-37); GLOMERULAR FILTRATION RATE,EST 66.0 mL/min (>60); PROTEIN, TOTAL 7.6 g/dL (6.4-8.2); UREA NITROGEN 22.0 mg/dL (7-18)
[2025-07-20] MEDS ORDERED: SEROQUEL25 MG PO (09:38)
[2025-07-20 10:04] VITALS: BP 148/92
== END 2025-07-20 10:03 | disposition home or self-care (01) ==
LOC: ED 07:27
PROVIDERS: Emergency Medicine
DX: S20.212A Contusion of left front wall of thorax, initial encounter (principal); F22 Delusional disorders; W19.XXXA Unspecified fall, initial encounter
CPT/HCPCS: 36415; 71045; 80053; 85025; 96360; 99285-25; A9270; J7040